=== PATIENT | female | born 1990 | race Caucasian/White ===

== ENCOUNTER 2023-03-05 18:36 | Outpatient (CLI) | payer OTHER ==
--- NOTE | 2023-03-06 08:07 | Ultrasound Report ---
PROCEDURE: OB First Trimester w/TV INDICATIONS: SUPERVISION OF OUTSIDE/PRIOR DATING DATA: 01/08/2023 IVF, 5 day old embryo. First dating scan (date and location): Today 03/05/2023. Estimated date of delivery (MARIAH) from first dating scan: 09/22/2023 TECHNIQUE: Real-time scanning was performed of the fetus and maternal pelvic organs, with image documentation. Endovaginal scanning was also performed to better visualize the fetus and maternal ovaries. COMPARISON: None FINDINGS: [place]-rump length is 4.5 cm, corresponding to an ultrasound age of 11 weeks and 2 days. He art rate is 160 bpm. Cervical length is 3.9 cm. Adnexal structures within normal limits. IMPRESSION: Single living intrauterine with positive heart tones at ultrasound age of 11 weeks an d 2 days, AMRIAH of 09/22/2023. Please note, official note/report is not available for IVF implantation dating (unconfirmed IVF MARIAH r eportedly per patient is 09/26/2023) Reviewed by: Steve Mascorro MD on 03/06/2023 8:06 AM PDT Approved by: Steve Mascorro MD on 03/06/2023 8:06 AM PDT Station ID: [id number]
== END 2023-03-05 18:37 | disposition home or self-care (01) ==
LOC: DI 18:36
PROVIDERS: ATTEND Nurse Practitioner Obstetrics & Gynecology
DX: Z34.81 Encounter for supervision of other normal pregnancy, first trimester (principal)

== ENCOUNTER 2023-06-27 12:00 | Outpatient (CLI) | payer OTHER ==
[2023-06-27 13:33] LABS: HCT - HEMATOCRIT 33.4 % (37.0-47.0); HGB - HEMOGLOBIN 10.9 g/dL (12.0-16.0); MEAN CORPUSCULAR HEMOGLOBIN 28.7 pg (27.0-31.0); MEAN CORPUSCULAR HGB CONC 32.6 g/dL (32.0-36.0); MEAN CORPUSCULAR VOLUME 87.9 fL (81.0-99.0); MEAN PLATELET VOLUME 10.6 fL (7.9-10.8); RED BLOOD COUNT 3.8 10^6/uL (4.20-5.40); RED CELL DISTRIBUTION WIDTH 13.1 % (12.0-15.0); WHITE BLOOD COUNT 10.5 x10^3/uL (4.8-10.8)
== END 2023-06-27 12:01 | disposition home or self-care (01) ==
LOC: LAB 12:00
PROVIDERS: ATTEND Nurse Practitioner Obstetrics & Gynecology
DX: Z36.9 Encounter for antenatal screening, unspecified (principal)
CPT/HCPCS: 36415; 82950; 85027

== ENCOUNTER 2023-06-29 08:19 | Outpatient (CLI) | payer OTHER ==
[2023-06-29 09:08] LABS: GTT GLUCOSE,FASTING 92 mg/dL (74-109)
== END 2023-06-29 08:20 | disposition home or self-care (01) ==
LOC: LAB 08:19
PROVIDERS: ATTEND Nurse Practitioner Obstetrics & Gynecology
DX: O99.810 Abnormal glucose complicating pregnancy (principal)
CPT/HCPCS: 36415; 82951; 82952

== ENCOUNTER 2023-09-29 10:51 | Outpatient (CLI) | payer OTHER ==
[2023-09-29 11:10] VITALS: BP 137/77
--- NOTE | 2023-09-30 20:08 | PROCEDURE REPORT ---
- HPI Diagnosis/Indication for NST: Other Current EDU 09/26/23 Gestation 40 Weeks and 3 Days 1 Para 0 Vital Signs Temperature 36.8 C 09/29/23 10:57 Heart Rate 93 09/29/23 10:57 Respiratory Rate 16 09/29/23 10:57 Blood Pressure 137/77 H 09/29/23 10:57 Temperature 36.8 C 09/29/23 10:57 Heart Rate 93 09/29/23 10:57 Respiratory Rate 16 09/29/23 10:57 Blood Pressure 137/77 H 09/29/23 10:57 O2 Saturation If not protocol: Oxygen Flow, liters/minute - NST Procedure NST Procedure Start Date 09/29/23 Start Time 11:01 Stop Time 11:30 Vibroacoustic Stimulation Used No Patient States Movement Yes - Results and Plan Plan: NST reactive. FHR baseline 140s, moderate variability, + accels, no decels Intermittent contractions appreciated via tocometry which pt does not feel. DIAGNOSIS: IVF Advanced maternal age
== END 2023-09-29 11:40 | disposition home or self-care (01) ==
LOC: WFO 10:51 → FBP 10:52 → WFO 11:40
PROVIDERS: ATTEND Nurse Practitioner Obstetrics & Gynecology
DX: O09.813 Supervision of pregnancy resulting from assisted reproductive technology, third trimester (principal); Z3A.40 40 weeks gestation of pregnancy
CPT/HCPCS: 59025

== ENCOUNTER 2023-10-02 17:26 | Inpatient (IN) | payer OTHER ==
[2023-10-02] MEDS ORDERED: OXYTOCIN/SODIUM CHLORIDE 500 ML IV PRN (18:10)
[2023-10-02] MEDS ORDERED: OXYTOCIN 10 UNIT/ML VIAL IM PRN (18:10)
[2023-10-02] MEDS ORDERED: hydrALAZINE INJ 20 MG/ML VIAL IVP PRN ×2 (18:10)
[2023-10-02] MEDS ORDERED: fentaNYL 100 MCG/2 ML VIAL IVP PRN (18:10)
[2023-10-02] MEDS ORDERED: LABETALOL 20 MG/4 ML SYRINGE IVP PRN ×3 (18:10)
[2023-10-02] MEDS ORDERED: lidocaine 1% 20 ML MDV ID PRN (18:10)
[2023-10-02] MEDS ORDERED: miSOPROStoL 200 MCG TABLET PR PRN (18:10)
[2023-10-02] MEDS ORDERED: CARBOPROST TROMETHAMINE 250 MCG/ML AMP IM PRN (18:10)
[2023-10-02] MEDS ORDERED: miSOPROStoL 200 MCG TABLET BC PRN (18:10)
[2023-10-02] MEDS ORDERED: SODIUM CHLORIDE FLUSH 0.9% 10 ML SYRINGE IVP PRN (18:10)
[2023-10-02] MEDS ORDERED: LACTATED RINGERS 1,000 ML IV PRN (18:10)
[2023-10-02] MEDS ORDERED: TRANEXAMIC ACID IN NACL 1,000 MG/100 ML BAG IV PRN (18:10)
[2023-10-02] MEDS ORDERED: TERBUTALINE 1 MG/ML VIAL SUBQ PRN (18:10)
[2023-10-02] MEDS ORDERED: METHYLERGONOVINE 0.2 MG/ML VIAL IM PRN (18:10)
[2023-10-02] MEDS ORDERED: NIFEdipine 10 MG CAPSULE PO PRN (18:10)
--- NOTE | 2023-10-02 20:20 | HISTORY & PHYSICAL EXAMINATION ---
Admit History - Visit Reason Visit Reason: Membranes rupture - : 4 Parity: 0 Premature: 0 Ectopic: 0 : 3 Care: positive: [facility] Risk/History: positive: Other Complications This : positive: Other Smoking Status: Never smoker - Mother's Labs Mother's Blood Type: positive: B Mother's RH: positive: Positive GBS: positive: Group B Step Negative Rubella Status: positive: Non-immune - HPI Current EDU 09/26/23 Gestation 40 Weeks and 6 Days 4 Vital Signs Temperature 36.8 C 10/02/23 17:39 Heart Rate 97 10/02/23 17:39 Respiratory Rate 18 10/02/23 17:39 Blood Pressure 132/78 H 10/02/23 17:39 Temperature 36.7 C 10/02/23 19:48 Heart Rate 103 H 10/02/23 19:48 Respiratory Rate 18 10/02/23 19:48 Blood Pressure 139/71 H 10/02/23 19:48 O2 Saturation If not protocol: Oxygen Flow, liters/minute - NST Procedure NST Procedure Start Time 11:01 Stop Time 11:30 - Results and Plan Findings/Impression: FHR Baseline 130s, moderate variability, + accels, no decels Contractions palpate mild intermittently with soft resting tone Review of Systems - Constitutional Constitutional: denies: Fatigue, Fever, Chills, Malaise - Eyes Eyes: denies: Blurred vision, Spots in vision, Dipolpia - Cardiovascular Cariovascular: reports: Edema. denies: Irregular heart rate, Palpitations, Chest pain - Respiratory Respiratory: denies: Cough, Wheezing, SOB at rest - Gastrointestinal Gastrointestinal: denies: Constipation, Diarrhea, Nausea, Vomiting - Genitourinary Genitourinary: denies: Dysuria - Integumentary Integumentary: denies: Rash, Pruritis - Neurological Neurological: denies: Headache Physical - Abdominal Exam Vital Signs: Temp Pulse Resp BP Pulse Ox O2 Flow Rate 36.7 C 103 H 18 139/71 H 10/02/23 19:48 10/02/23 19:48 10/02/23 19:48 10/02/23 19:48 Contraction Frequency (min/apart): intermittent Contraction Intensity: positive: Mild Uterine Resting Tone: positive: Soft - Monitoring Heart Rate Baseline: 130 Strip Review: positive: Category I - Presentation Presentation: positive: Vertex - Vaginal Exam Membranes: positive: Membranes ruptured Dilation (in cm): 2-3 Effacement (%): 80 Station: positive: -2 Cervical Position: positive: Posterior Plan for Labor - Plan For Labor I expect patient to be DC'd or transferred within 96 hours.: Yes Plan for Labor: HPI: Liliana is a 33yo @ 40.6wks gestation by IVF transfer date who presented on 10/02/2023 with c/o vaginal leakage of clear fluid that occurred as a small gush today at 1500 and was followed by a larger gush this evening at 1630. Upon arrival she was noted to have grossly ruptured membranes with continued leakage of clear vaginal fluid. She reports +FM. She denies vaginal bleeding. FHR Category I. SVE 2-3/70/-2 and vertex. She has been a patient of [facility] for the duration of her which has been complicated by her advanced maternal age and IVF . In addition she was noted to have an elevated 1 hour glucola but her 3 hour glucose was WNL. Secondary to advanced maternal age and IVF she has had twice weekly NSTs with once weekly AFIs since 36 weeks gestation for screening. She is supported by her Dean and her sister Jen. 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 TAB x 3. Last pap 11/2020. Denies history of gonorrhea, chlamydia, genital herpes, oral herpes or any other STI. Sexual partner does NOT have HSV (oral or genital). Medical Hx: Infertility Surgical Hx: D&C x 3 Social Hx: Monogamous with male partner. Stopped drinking alcohol due to . Denies current use of tobacco, marijuana or other recreational drugs. Hx of vaping. Reports that she is safe in current relationship. Family Hx: Denies family history of congenital anomalies, Cystic Fibrosis or chromosomal abnormalities; Pancreatic cancer - father; Diabetes - maternal aunt Allergies: Penicillin, grapes Medications: PNV, 50mcg levothyroxine PO once daily, ASA 81mg PO once daily course: B positive, antibody negative Rubella non-immune, varicella immune HIV non-reactive, RPR non-reactive Hep B neg; Hep C neg Initial U/S @ 8.0wks gestation consistent with IVF transfer date FAS WNL with the exception of suboptimal view of 4CH septum due to position, otherwise detailed evaluation is unremarkable. No significant structural abnormalities are appreciable at the present time. Posterior placenta without evidence of previa. 3VC. Size c/w dating. echocardiogram @ 24wks: echocardiogram entirely WNL. No follow up required during remainder of . 1 hour glucola 147 3 hr GTT: WNL (92, 164, 132, 123) Growth and GISELA @ 34wks: EFW 2954g (91%tile) Tdap: 07/2023 Vaccines: RSV -declined; influenza- declined; COVID - declined GBS negative Physical exam; Normocephalic, atraumatic Heart RRR w/o M/G/R Lungs CTAB Abdomen gravid, soft, nontender EFW 3800g FHR baseline 140s, moderate variability, + accels, no decels Contractions palpate mild intermittently with soft resting tone SVE 2-3/70/-2 and vertex Grossly ruptured membranes, clear fluid Bilateral LE's trace edema Mood is good. Assessment: 33yo @ 40.6wks gestation by IVF transfer date c/w first trimester ultrasound Advanced maternal age IVF GBS negative FHR Category I Plan: Admit to [facility] for expectant management. Intermittent heart rate auscultation. Repeat SVE in 4 hours or sooner PRN. Consider initiation of pitocin for augmentation of labor at that time if SVE unchanged. Jacuzzi PRN. Nitrous oxide PRN. Epidural per maternal request. Anticipate .
[2023-10-02] MEDS: CALCIUM CARBONATE CHEW 500 MG TABLET PO SCH (20:53)
[2023-10-03 00:36] LABS: BASOPHILS # (AUTO) 0.1 10^3/uL (0.0-0.1); BASOPHILS % (AUTO) 0.5 %; EOSINOPHILS # (AUTO) 0.2 10^3/uL (0.0-0.7); EOSINOPHILS % (AUTO) 1.6 %; HGB - HEMOGLOBIN 11.3 g/dL (12.0-16.0); LYMPHOCYTES # (AUTO) 2.1 10^3/uL (1.5-3.5); LYMPHOCYTES % (AUTO) 13.6 %; MEAN CORPUSCULAR HEMOGLOBIN 28.8 pg (27.0-31.0); MEAN CORPUSCULAR HGB CONC 33.2 g/dL (32.0-36.0); MEAN CORPUSCULAR VOLUME 86.7 fL (81.0-99.0); MEAN PLATELET VOLUME 11.1 fL (7.9-10.8); MONOCYTES # (AUTO) 1.2 10^3/uL (0.0-1.0); MONOCYTES % (AUTO) 7.7 %; NEUTROPHILS # (AUTO) 11.3 10^3/uL (1.5-6.6); NEUTROPHILS % (AUTO) 75.2 %; PLT - PLATELET COUNT 190 10^3/uL (130-450); RED BLOOD COUNT 3.92 10^6/uL (4.20-5.40); RED CELL DISTRIBUTION WIDTH 13.6 % (12.0-15.0)
--- NOTE | 2023-10-03 02:15 | PROVIDER PROGRESS NOTE ---
Labor Progress Note - Uterine Monitoring Uterine Monitoring Mode: positive: External toco Contraction Frequency (min/apart): 3-5 Contraction Intensity: positive: Moderate to strong Uterine Resting Tone: positive: Soft - Monitoring Monitor Mode: positive: External ultrasound Heart Rate Baseline: 140 Heart Rate Variability: positive: Moderate (6-25 bmp) Accelerations: positive: Present, 15x15 Decelerations: positive: None Strip Review: positive: Category I - Vaginal Exam Dilation (in cm): 5 Effacement (%): 90 Station: -2 Cervical Position: Midposition - Labor Progress Note Labor Progress Note/Additional Text: S: Breathing through contractions. Using nitrous oxide for pain management but requesting an epidural for pain management at this time. She has continued to feel increased intensity of her contractions and she feels like her ability to cope has diminished. Her Dean remains supportive at the bedside. O: FHR baseline 140s, moderate variability, + accels, no decels Contractions palpate moderate to strong every 3-6 minutes with soft resting tone SVE 5/90/-2, vertex SROM x 11 hrs A: 33yo @ 41.0wks gestation by IVF transfer date Active labor Advanced maternal age IVF FHR Category I GBS negative P: Continue expectant management. Anesthesia notified for placement of epidural for pain management. Continuous monitoring. Encouraged rotation in bed on peanut ball once comfortable with epidural. Also encouraged her to rest and get some sleep since she has not been able to sleep at al tonight. Anticipate .
[2023-10-03] MEDS ORDERED: ROPIVACAINE 0.2% 200 MG/100 ML BAG EP ONE (02:17)
[2023-10-03] MEDS ORDERED: LIDOCAINE 2%-EPI 1:100000 20 ML MDV ONE ×2 (02:21→21:09)
[2023-10-03] MEDS ORDERED: NALOXONE 0.4 MG/ML VIAL IVP PRN ×2 (02:45→22:45)
[2023-10-03] MEDS ORDERED: ONDANSETRON 4 MG/2 ML VIAL IVP PRN ×2 (02:45→07:22)
[2023-10-03] MEDS ORDERED: NALBUPHINE 10 MG/ML AMP IVP PRN (02:45)
[2023-10-03] MEDS ORDERED: diphenhydrAMINE INJ 50 MG/ML VIAL IVP PRN (02:45)
[2023-10-03] MEDS ORDERED: METOCLOPRAMIDE 10 MG/2 ML VIAL IVP PRN (02:45)
[2023-10-03] MEDS: ePHEDrine 50 MG/ML VIAL IVP PRN ×2 (03:35→03:45)
[2023-10-03] MEDS: SODIUM CHLORIDE FLUSH 0.9% 10 ML SYRINGE IVP SCH ×3 (03:36→14:09)
[2023-10-03] MEDS: CALCIUM CARBONATE CHEW 500 MG TABLET PO SCH ×3 (04:26→21:00)
--- NOTE | 2023-10-03 04:51 | PROVIDER PROGRESS NOTE ---
Labor Progress Note - Uterine Monitoring Uterine Monitoring Mode: positive: External toco Contraction Frequency (min/apart): 4-6 Contraction Intensity: positive: Moderate to strong Uterine Resting Tone: positive: Soft - Monitoring Monitor Mode: positive: External ultrasound Heart Rate Baseline: 150 Heart Rate Variability: positive: Moderate (6-25 bmp) Accelerations: positive: Present, 15x15 Decelerations: positive: Late, Intermittent (<50% x20 min) Strip Review: positive: Category II - Vaginal Exam Dilation (in cm): 6 Effacement (%): 100 Station: -1 Cervical Position: Midposition - Labor Progress Note Labor Progress Note/Additional Text: S: Patient comfortable with epidural. She is feeling ready to take a nap. Her is supportive at the bedside. O: FHR Baseline 150s, moderate variability, + accels, intermittent late decelerations following epidural placement and subsequent blood pressure drop that improved with ephedrine and position changes Contractions palpate moderate to strong every 4-6 minutes with soft resting tone SVE 6/100/-1 and vertex SROM x 14 hours A: 33yo @ 41.0wks gestation by IVF transfer date Active labor Advanced maternal age IVF GBS neg FHR Category II - overall reassuring P: Maintain epidural for pain management Continuous monitoring. Encouraged position changes in bed on peanut ball while promoting rest. Anticipate .
[2023-10-03] MEDS: LEVOTHYROXINE 25 MCG TABLET PO SCH (08:00)
[2023-10-03] MEDS: LACTATED RINGERS 1,000 ML IV SCH ×2 (08:02→16:10)
--- NOTE | 2023-10-03 09:15 | ANESTHESIA ---
Pre-Anesthesia VS, & Labs - Diagnosis term labor, IUP - Procedure epidural Vital Signs: Temp Pulse Resp BP Pulse Ox O2 Flow Rate 36.7 C 103 H 18 139/71 H 10/02/23 19:48 10/02/23 19:48 10/02/23 19:48 10/02/23 19:48 Height: 5 ft 9 in Weight (kg): 109.316 kg Body Mass Index: 35.6 BMI Classification: Obese - NPO Last Fluid Intake: t/o night Last Food Intake: dinner - Is Patient ?: Yes - Lab Results Current Lab Results: Laboratory Tests 10/03/23 03:46: Blood Type Recheck B POSITIVE 10/03/23 00:15: WBC 15.0 H, RBC 3.92 L, Hgb 11.3 L, Hct 34.0 L, MCV 86.7, MCH 28.8, MCHC 33.2, RDW 13.6, Plt Count 190, MPV 11.1 H, Neut # (Auto) 11.3 H, Lymph # (Auto) 2.1, [place] # (Auto) 1.2 H, Eos # (Auto) 0.2, Baso # (Auto) 0.1, Absolute Nucleated RBC 0.00, Nucleated RBC % 0.0 10/03/23 00:15: Blood Type B POSITIVE, Antibody Screen NEGATIVE Lab results reviewed: Yes Fish Bones: 10/03/23 00:15 Home Medications and Allergies Active Medications Calcium Carbonate/Glycine (Calcium Carbonate Chew 500 Mg Tablet) 1,000 mg PO BID ADELAIDA Last Admin: 10/03/23 04:26 Dose: 1,000 mg Carboprost Tromethamine (Carboprost Tromethamine 250 Mcg/Ml Amp) 250 mcg IM .ONCE PRN PRN Reason: Hemorrhage Diphenhydramine HCl (Diphenhydramine Inj 50 Mg/Ml Vial) 12.5 - 25 mg IVP Q6HR PRN PRN Reason: ITCHING Ephedrine Sulfate (Ephedrine 50 Mg/Ml Vial) 5 mg IVP Q5M PRN PRN Reason: For SBP<100;give until SBP>100 Last Admin: 10/03/23 03:45 Dose: 5 mg Fentanyl (Fentanyl 100 Mcg/2 Ml Vial) 50 mcg IVP Q1H PRN PRN Reason: Severe Pain (score 7-10) Hydralazine HCl (Hydralazine Inj 20 Mg/Ml Vial) 5 - 10 mg IVP Q20M PRN; Protocol PRN Reason: SBP> or= 160 OR DBP> or= 110 Hydralazine HCl (Hydralazine Inj 20 Mg/Ml Vial) 10 mg IVP .ONCE PRN; Protocol PRN Reason: SBP> or= 160 OR DBP> or= 110 Lactated Ringer's (Lr) 500 mls @ 999 mls/hr IV PRN PRN PRN Reason: NEEDED PER PROVIDER ORDERS Last Infusion: 10/03/23 08:53 Dose: Infused Oxytocin/Sodium Chloride (Pitocin/Sodium Chloride) 500 mls @ 999 mls/hr IV PRN PRN; Protocol PRN Reason: POST- HEMORR PREVENTION Tranexamic Acid (Tranexamic 1,000 Mg/100ml-Nacl) 1,000 mg in 100 mls @ 600 mls/hr IV Q30M PRN PRN Reason: EBL >1200mL and within 3hr Ropivacaine (Naropin 0.2%) 200 mg in 100 mls @ 0 mls/hr EP PRN PRN; Protocol PRN Reason: PAIN Lactated Ringer's (Lr) 1,000 mls @ 125 mls/hr IV .Q8H ADELAIDA Last Admin: 10/03/23 08:02 Dose: 125 mls/hr Labetalol HCl (Labetalol 20 Mg/4 Ml Syringe) 20 - 80 mg IVP Q10M PRN; Protocol PRN Reason: SBP> or= 160 OR DBP> or= 110 Labetalol HCl (Labetalol 20 Mg/4 Ml Syringe) 20 mg IVP .ONCE PRN; Protocol PRN Reason: SBP> or= 160 OR DBP> or= 110 Labetalol HCl (Labetalol 20 Mg/4 Ml Syringe) 20 - 40 mg IVP Q10M PRN; Protocol PRN Reason: SBP> or= 160 OR DBP> or= 110 Levothyroxine Sodium (Levothyroxine 25 Mcg Tablet) 50 mcg PO QDAC ADELAIDA Lidocaine HCl (Lidocaine 1% 20 Ml Mdv) 20 ml ID .ONCE PRN PRN Reason: PERINEAL REPAIR Stop: 10/05/23 18:11 Methylergonovine Maleate (Methylergonovine 0.2 Mg/Ml Vial) 0.2 mg IM .ONCE PRN PRN Reason: Hemorrhage Metoclopramide HCl (Metoclopramide 10 Mg/2 Ml Vial) 10 mg IVP Q6HR PRN PRN Reason: Nausea / Vomiting Last Admin: 10/03/23 07:58 Dose: 10 mg Misoprostol (Misoprostol 200 Mcg Tablet) 600 mcg BC .ONCE PRN PRN Reason: Hemorrhage Misoprostol (Misoprostol 200 Mcg Tablet) 800 mcg ID .ONCE PRN PRN Reason: Hemorrhage Nalbuphine HCl (Nalbuphine 10 Mg/Ml Amp) 2.5 - 5 mg IVP Q4H PRN PRN Reason: ITCHING Naloxone HCl (Naloxone 0.4 Mg/Ml Vial) 0.1 mg IVP Q2M PRN PRN Reason: RR<8 Nifedipine (Nifedipine 10 Mg Capsule) 10 - 20 mg PO Q20M PRN; Protocol PRN Reason: SBP> or= 160 OR DBP> or= 110 Ondansetron HCl (Ondansetron 4 Mg/2 Ml Vial) 4 mg IVP Q6HR PRN PRN Reason: Nausea / Vomiting Last Admin: 10/03/23 03:38 Dose: 4 mg Ondansetron HCl (Ondansetron 4 Mg/2 Ml Vial) 4 mg IVP Q4HR PRN PRN Reason: Nausea / Vomiting Last Admin: 10/03/23 07:31 Dose: 4 mg Oxytocin (Oxytocin 10 Unit/Ml Vial) 10 unit IM .ONCE PRN PRN Reason: Step One if no IV access. Sodium Chloride (Sodium Chloride Flush 0.9% 10 Ml Syringe) 10 ml IVP PRN PRN PRN Reason: NEEDED PER PROVIDER ORDERS Last Admin: 10/03/23 07:31 Dose: 10 ml Sodium Chloride (Sodium Chloride Flush 0.9% 10 Ml Syringe) 10 ml IVP Q8H [facility] Last Admin: 10/03/23 03:43 Dose: 10 ml Terbutaline Sulfate (Terbutaline 1 Mg/Ml Vial) 0.25 mg SUBQ .ONCE PRN PRN Reason: Tachystole Allergies/Adverse Reactions: Allergies Allergy/AdvReac Type Severity Reaction Status Date / Time grape AdvReac Anaphylaxis Verified 10/02/23 20:54 penicillin G AdvReac Hives Verified 10/02/23 20:54 Anes History & Medical History - Anesthetic History Anesthesia Complications: reports: No previous complications Family history of Anesthesia Complications: Denies Family history of Malignant Hyperthermia: Denies - Medical History Smoking Status: Never smoker - Obstetrical History : 4 Parity: 0 Events: reports: Other Complications: reports: Other Exam General: Alert, Oriented x3, Cooperative Respiratory: No respiratory distress Cardiovascular: Regular rate Neurological: Normal speech Mental/Cognitive Status: Alert/Oriented X3, Normal for patient Cognitive Status: Within normal limits Plan Anesthesia Type: Epidural Consent for Procedure(s) Verified and Reviewed: Yes Code Status: Attempt Resuscitation ASA classification: 2-Mild systemic disease Is this case an emergency?: No
[2023-10-03] MEDS: ROPIVACAINE 0.2% 200 MG/100 ML BAG EP PRN ×2 (09:26→17:43)
[2023-10-03] MEDS ORDERED: OXYTOCIN/SODIUM CHLORIDE 500 ML IV SCH ×2 (10:00→10:50)
[2023-10-03] MEDS ORDERED: CLINDAMYCIN 900 MG/50 ML 900 MG/50 ML BAG IV SCH (20:03)
[2023-10-03] MEDS ORDERED: GENTAMICIN IV ONE (20:04)
[2023-10-03] MEDS ORDERED: SODIUM CHLORIDE 0.9% IV ONE (20:04)
[2023-10-03] MEDS ORDERED: ACETAMINOPHEN 1,000 MG/100 ML 1,000 MG/100 ML BAG IV ONE (20:06)
[2023-10-03] MEDS ORDERED: GENTAMICIN 80 MG/2 ML VIAL ONE (20:39)
--- NOTE | 2023-10-03 20:43 | PROVIDER PROGRESS NOTE ---
Labor Progress Note - Uterine Monitoring Uterine Monitoring Mode: positive: External toco Contraction Frequency (min/apart): 2-4 Contraction Intensity: positive: Strong Uterine Resting Tone: positive: Soft - Monitoring Monitor Mode: positive: External ultrasound Heart Rate Baseline: 170 Heart Rate Variability: positive: Minimal (0-5 bpm) Accelerations: positive: Absent Decelerations: positive: Early, Recurrent (>50% x20 min) Strip Review: positive: Category II - Vaginal Exam Dilation (in cm): 10 Effacement (%): 100 Station: 0 - Labor Progress Note Labor Progress Note/Additional Text: S: Patient breathing through contractions with her epidural. She continues to feel intense pressure with contractions. Her and sister are supportive at the bedside. She is feeling accepting of a delivery after our discussion about failure to progress and intraamniotic infection. O: FHR baseline 170s-180s, minimal variability with intermittent periods of moderate variability Cessation of contractions Pitocin discontinued (maximum infusion rate of 12mU/mL) A: 33yo @ 41.0wks gestation by IVF transfer date Advanced maternal age IVF Intraamniotic infection GBS neg P: woolen tester physician notified and presence requested for urgent delivery secondary to arrest of decent, intolerance of labor, and intraamniotic infection. Care handed to balloon artist physician.
[2023-10-03] MEDS ORDERED: SODIUM CHLORIDE 0.9% 100ML 100 ML IV ONE (21:12)
[2023-10-03] MEDS ORDERED: LACTATED RINGERS 1,000 ML ONE (21:19)
[2023-10-03] MEDS ORDERED: LACTATED RINGERS 1,000 ML IV ONE ×2 (22:12→22:45)
[2023-10-03] MEDS ORDERED: KETOROLAC 30 MG/ML VIAL ONE (22:12)
--- NOTE | 2023-10-03 22:33 | ANESTHESIA POST OP EVALUATION ---
Anesthesia Post Eval - Post Anesthesia Eval Vitals: Last Vital Signs Temp 36.7 C 10/03/23 22:12 Pulse 101 H 10/03/23 22:22 Resp 20 10/03/23 22:22 BP 101/79 10/03/23 22:22 Pulse Ox 99 10/03/23 22:22 O2 Flow Rate CV Function Including HR & BP: Stable Pain Control: Satisfactory Nausea & Vomiting: Negative Mental Status: Baseline Respiratory Status: Airway Patent Hydration Status: Satisfactory Anesthesia Complications: None
[2023-10-03] MEDS ORDERED: oxyCODONE 5 MG TABLET PO PRN (22:45)
[2023-10-03] MEDS ORDERED: OXYTOCIN/SODIUM CHLORIDE 500 ML IV PRN (22:45)
[2023-10-03] MEDS ORDERED: NIFEdipine 10 MG CAPSULE PO PRN (22:45)
[2023-10-03] MEDS ORDERED: hydrALAZINE INJ 20 MG/ML VIAL IVP PRN ×2 (22:45)
[2023-10-03] MEDS ORDERED: LABETALOL 20 MG/4 ML SYRINGE IVP PRN ×3 (22:45)
--- NOTE | 2023-10-03 22:52 | PROVIDER PROGRESS NOTE ---
Labor Progress Note - Uterine Monitoring Uterine Monitoring Mode: positive: External toco Contraction Frequency (min/apart): 5-8 Contraction Intensity: positive: Moderate Uterine Resting Tone: positive: Soft - Monitoring Monitor Mode: positive: External ultrasound Heart Rate Baseline: 140 Heart Rate Variability: positive: Moderate (6-25 bmp) Accelerations: positive: Present, 15x15 Decelerations: positive: None Strip Review: positive: Category I - Labor Progress Note Labor Progress Note/Additional Text: S: Patient comfortable with her epidural. She is feeling very tired and really wants to work to get in a nap. Her and sister are both supportive at the bedside. O: FHR baseline 140s, moderate variability, + accels, no decels Contractions palpate moderate to strong every 5-10 minutes with soft resting tone SROM x 19 hours, continues to leak clear fluid. Afebrile SVE unchanged A: 33yo @ 41.0wks gestation by IVF transfer date Active labor with slow labor progress FHR Category I Advanced maternal age IVF GBS negative P: Initiate pitocin for augmentation of labor with titration per protocol. Continuous monitoring. Maintain epidural for pain management. Encouraged rotation in bed on peanut ball q 30 minutes while also promoting rest. Anticipate .
--- NOTE | 2023-10-03 22:52 | HISTORY & PHYSICAL EXAMINATION ---
HPI - Admitted From Admitted from: OB - History Obtained From History obtained from: Patient, Caregiver, Other Exam limitations: No limitations (patient in labor making slow progress. pushing and now with fever and tachycardia. c section recommended.) Social & Family Hx - Social History Smoking Status: Never smoker Meds/Allgy - Allergies Allergies/Adverse Reactions: Allergies Allergy/AdvReac Type Severity Reaction Status Date / Time grape AdvReac Anaphylaxis Verified 10/02/23 20:54 penicillin G AdvReac Hives Verified 10/02/23 20:54 Exam - Vital Signs Vital Signs: Vital Signs x48h Temp Pulse Resp BP Pulse Ox 10/03/23 22:27 98 20 126/76 97 10/03/23 22:22 101 H 20 101/79 99 10/03/23 22:17 101 H 21 114/81 H 98 10/03/23 22:12 98.1 F 110 H 23 130/69 98 - Physical Exam General Appearance: positive: No acute distress Abdomen: positive: Non-tender (vag exam with head not engaged. vaginal prep done. urine in catheter is bloody.) Extremities: positive: Pedal edema Neurologic/Psychiatric: positive: Oriented x3 Results - Lab Results Fish Bones: 10/03/23 00:15 Other Lab Results: Lab Results x24hrs 10/03/23 10/03/23 10/03/23 Range/Units 03:46 00:15 00:15 WBC 15.0 H (4.8-10.8) x10^3/uL RBC 3.92 L (4.20-5.40) 10^6/uL Hgb 11.3 L (12.0-16.0) g/dL Hct 34.0 L (37.0-47.0) % MCV 86.7 (81.0-99.0) fL MCH 28.8 (27.0-31.0) pg MCHC 33.2 (32.0-36.0) g/dL RDW 13.6 (12.0-15.0) % Plt Count 190 (130-450) 10^3/uL MPV 11.1 H (7.9-10.8) fL Neut # (Auto) 11.3 H (1.5-6.6) 10^3/uL Lymph # (Auto) 2.1 (1.5-3.5) 10^3/uL [place] # (Auto) 1.2 H (0.0-1.0) 10^3/uL Eos # (Auto) 0.2 (0.0-0.7) 10^3/uL Baso # (Auto) 0.1 (0.0-0.1) 10^3/uL Absolute Nucleated RBC 0.00 x10^3/uL Nucleated RBC % 0.0 /100WBC Blood Type B POSITIVE Blood Type Recheck B POSITIVE Antibody Screen NEGATIVE Crossmatch IS Only See Detail Sepsis Event Note (H) - Evaluation Possible source of Sepsis: positive: Genitourinary Impression/Plan - Problem List Problem List: Arrest of descent. large baby. plan LTCS. has working epidural. vaginal prep. risks and what to expect after discussed. consents signed. chorio - clinda infusing. will give ancef and also gent.
--- NOTE | 2023-10-03 22:59 | OPERATIVE REPORT ---
Operative Report - General Admit Date: 10/02/23 Procedure Date: 10/03/23 Planned Procedure: LTCS Pre-Op Diagnosis: failure to descend, chorio Procedure Performed: low transverse c section Post Op Diagnosis: same plus macrosomic infant. - Procedure Note Primary Surgeon: Bettie Watson MD Secondary Surgeon: Caroline Pruitt CNM Anesthesia Provider: Kaylynn Arredondo CRNA Anesthesia Technique: Epidural IV Fluids (mL): 1,000 Estimated Blood Loss (mL): 700 Urine Output (mL): 25 Indications: slow labor progress. pushing with minimal descent. large baby. maternal fever and tachycardia. Findings: large baby. Apgars are good. 8/8. weight pending. uterus, tubes and ovaries normal. Complications: none - Other Other Information/Narrative: Called by CNM as her patient was not making progress and had fever. baby had tachycardia. very slow labor progress. pushing with little success. Patient agrees to proceed with c section. procedure discussed. consents signed. epidural dosed. Brought to OR and readied for surgery. villanueva in place. vaginal prep done by me and baby's head was not engaged so no need to push it up. abdominal prep done. SCDs on and working. time out done. anesthesia tested. Pfanensteil skin incision was made with knife and carried to fascia which was transected bilaterally. rectus muscles discected off inferiorly and superiorly. muscles are split at midline. peritoneum entered digitally and stretched. Erick retractor is placed and rolled down. Low transverse uterine incision is made with the knife and stretched cephalo- caudally. Baby was OP, head in pelvis. Elevated with my hand and brought up through incision. baby was delivered. shoulders took some maneuvering to get out. Baby was very large. He was a bit pale so cord was clamped long and cut and he was handed off to coal wheeler. He was stimulated and did fine. Placenta was delivered with gentle traction. uterus was cleared of clots and debris. Closed wiht running locked 0 Monocryl suture. 2nd horizontal imbricating layer placed. Irrigation done. Erick removed. Fascia and muscles examined for bleeding and cauterized as needed. Fascia closed with running 0 Vicryl stitch. more irrigation. Sub Q closed wtih 3-0 Vicryl. Skin closed with 4-0 Monocryl with a Jadiel needle in subcuticular fashion. no complications. uterus expressed with no output. felt firm. villanueva was very bloody at start of case, clearing at end. Patient brought back to her room for recovery.
--- NOTE | 2023-10-03 23:01 | PROVIDER PROGRESS NOTE ---
Labor Progress Note - Uterine Monitoring Uterine Monitoring Mode: positive: External toco Contraction Frequency (min/apart): 4-5 Contraction Intensity: positive: Strong Uterine Resting Tone: positive: Soft - Monitoring Monitor Mode: positive: External ultrasound Heart Rate Baseline: 150 Heart Rate Variability: positive: Moderate (6-25 bmp) Accelerations: positive: Present, 15x15 Decelerations: positive: Early, Intermittent (<50% x20 min) Strip Review: positive: Category I - Vaginal Exam Dilation (in cm): 9.5 Effacement (%): 100 Station: 0 - Labor Progress Note Labor Progress Note/Additional Text: S: Patient comfortable with epidural. Anesthesia was recently present to change her epidural dosage from intermittent bolus to continuous dosage as patient is worried about her ability to push shortly after the epidural boluses and her legs become very heavy and numb. Since that change she feels like she will have more control and sensation to be able to push effectively. She is feeling more rested and she is very ready to meet her baby. Her and sister are supportive at the bedside. O: FHR baseline 150s, moderate variability, + accels, intermittent early decels Contractions palpate strong every 4-5 minutes with soft resting tone SVE anterior lip/100/0. Vertex. SROM x 25 hours - afebrile Attempted to push with anterior lip x 3 contractions with no forward progress made and lip remains, therefore pushing discontinued. Pitocin @ 11mU/mL (maximum 12 mU/mL) A: 33yo @ 41.0wks gestation by IVF transfer date Active labor FHR Category I GBS negative Advanced maternal age IVF P: Encouraged position changes to reduce pressure sensations and promote complete cervical dilation Continuous monitoring. Maintain epidural for pain management. Concern for slow labor progress despite adequate contractions and prolonged rupture of membranes.
--- NOTE | 2023-10-03 23:10 | PROVIDER PROGRESS NOTE ---
Labor Progress Note - Uterine Monitoring Uterine Monitoring Mode: positive: External toco Contraction Frequency (min/apart): 4-5 Contraction Intensity: positive: Strong Uterine Resting Tone: positive: Soft - Monitoring Monitor Mode: positive: External ultrasound Heart Rate Baseline: 170 Heart Rate Variability: positive: Minimal (0-5 bpm), Moderate (6-25 bmp) Accelerations: positive: Absent Decelerations: positive: Early, Recurrent (>50% x20 min) Strip Review: positive: Category II - Vaginal Exam Dilation (in cm): 10 Effacement (%): 100 Station: 0 - Labor Progress Note Labor Progress Note/Additional Text: S: Patient comfortable with epidural. Has pushed with tremendous effort and no descent. We reviewed my concern for failure to descend in addition to prolonged rupture of membranes and new diagnosis of intraamniotic infection diagnosed by new onset tachycardia, maternal tachycardia, and maternal temperature. She has been typed and crossmatched for 2 units secondary to her increased risk of hemorrhage. Antibiotics initiated per protocol secondary to intraamniotic infection. IV Tylenol administered due to maternal fever. physically impaired teacher physician notified of patient status and concern for potential need for delivery. physically impaired teacher physician supports delivery and will be notified PRN. Reviewed concerns with patient again and discussed delivery. She desires continued pushing effort while discussing delivery between contractions.
[2023-10-04] MEDS ORDERED: HYDROmorphone 0.5 MG/0.5 ML SYRINGE IVP PRN (00:37)
--- NOTE | 2023-10-04 00:50 | PROVIDER PROGRESS NOTE ---
Subjective - Subjective Subjective: very painful as epidural has worn off. significant buring in the incision and then uterine cramping. will have her use ice and give her some dilaudid and then oxycodone. Objective - Vital Signs/Intake & Output Vital Signs: Vital Signs x48h Temp Pulse Resp BP Pulse Ox 10/03/23 22:50 94 17 124/77 98 10/03/23 22:40 87 17 115/66 97 10/03/23 22:27 98 20 126/76 97 10/03/23 22:22 101 H 20 101/79 99 10/03/23 22:17 101 H 21 114/81 H 98 10/03/23 22:12 98.1 F 110 H 23 130/69 98 Intake & Output: Intake & Output 10/01/23 10/02/23 10/03/23 10/04/23 23:59 23:59 23:59 23:59 Intake Total 1622.700 Output Total 750 Balance 872.700 - Lab Results Fish Bones: 10/03/23 00:15 Other Labs: Lab Results x24hrs 10/03/23 10/03/23 Range/Units 03:46 00:15 Blood Type B POSITIVE Blood Type Recheck B POSITIVE Antibody Screen NEGATIVE Crossmatch IS Only See Detail Sepsis Event Note (H) - Evaluation Possible source of Sepsis: positive: Genitourinary
[2023-10-04] MEDS: oxyCODONE 5 MG TABLET PO PRN ×5 (02:50→20:30)
[2023-10-04] MEDS: SODIUM CHLORIDE FLUSH 0.9% 10 ML SYRINGE IVP SCH ×4 (03:51→19:00)
[2023-10-04] MEDS: KETOROLAC 30 MG/ML VIAL IVP SCH ×3 (03:52→16:53)
[2023-10-04] MEDS: ACETAMINOPHEN 500 MG TABLET PO SCH ×3 (03:52→19:51)
[2023-10-04] MEDS: LEVOTHYROXINE 25 MCG TABLET PO SCH (07:00)
[2023-10-04] MEDS ORDERED: ENOXAPARIN 40 MG/0.4 ML SYRINGE SUBQ SCH (09:00)
[2023-10-04 09:15] LABS: HCT - HEMATOCRIT 29.5 % (37.0-47.0); HGB - HEMOGLOBIN 9.8 g/dL (12.0-16.0); MEAN CORPUSCULAR HEMOGLOBIN 28.6 pg (27.0-31.0); MEAN CORPUSCULAR HGB CONC 33.2 g/dL (32.0-36.0); MEAN PLATELET VOLUME 10.8 fL (7.9-10.8); RED BLOOD COUNT 3.43 10^6/uL (4.20-5.40); RED CELL DISTRIBUTION WIDTH 13.9 % (12.0-15.0); WHITE BLOOD COUNT 16.1 x10^3/uL (4.8-10.8)
[2023-10-04] MEDS: DOCUSATE SODIUM 100 MG CAPSULE PO SCH ×2 (10:02→22:41)
--- NOTE | 2023-10-04 15:13 | PROVIDER PROGRESS NOTE ---
Subjective - Prog Note Date Prog Note Date: 10/04/23 Prog Note Time: 14:52 - Subjective Pt reports feeling: Improved Objective - Vital Signs/Intake & Output Reviewed Vital Signs: Yes Vital Signs: Vital Signs x48h Temp Pulse Resp BP Pulse Ox 10/04/23 08:00 97.9 F 88 16 135/63 H 97 Intake & Output: Intake & Output 10/01/23 10/02/23 10/03/23 10/04/23 23:59 23:59 23:59 23:59 Intake Total 9286.480 9346 Output Total 750 2050 Balance 872.700 -1050 - Objective General Appearance: positive: No acute distress Eyes Bilateral: positive: Normal inspection ENT: positive: ENT inspection nml Neck: positive: Nml inspection Respiratory: positive: Chest non-tender, No respiratory distress, Breath sounds nml Cardiovascular: positive: Regular rate & rhythm, No murmur, No gallop Abdomen: positive: Other (appropriately tender, lalitha 1 below u) Skin: positive: Color nml, No rash, Warm, Dry Extremities: positive: Non-tender, Full ROM, Nml appearance Neurologic/Psychiatric: positive: Oriented x3 - Lab Results Fish Bones: 10/04/23 09:07 Other Labs: Lab Results x24hrs 10/04/23 10/03/23 Range/Units 09:07 00:15 WBC 16.1 H (4.8-10.8) x10^3/uL RBC 3.43 L (4.20-5.40) 10^6/uL Hgb 9.8 L (12.0-16.0) g/dL Hct 29.5 L (37.0-47.0) % MCV 86.0 (81.0-99.0) fL MCH 28.6 (27.0-31.0) pg MCHC 33.2 (32.0-36.0) g/dL RDW 13.9 (12.0-15.0) % Plt Count 166 (130-450) 10^3/uL MPV 10.8 (7.9-10.8) fL Blood Type B POSITIVE Antibody Screen NEGATIVE Crossmatch IS Only See Detail - Other Results/Comments Other Results/Comments: doing well continue to advance D/C dressing tomorrow add lidocaine patch for pain baby is getting sugar checks due to his size continue to advance, anticipate D/C home POD#3. Sepsis Event Note (H) - Evaluation Possible source of Sepsis: positive: Genitourinary Assessment/Plan - Problem List (1) Anemia Impression: asymptomatic, add iron. Qualifiers: Anemia type: other cause Other causes of anemia: acute posthemorrhagic Qualified Code(s): D62 - Acute posthemorrhagic anemia (2) Arrest of descent, delivered, current hospitalization Impression: continue to advance, doing well. (3) Delivery by section Impression: continue to advance anticipate D/C home POD#3
[2023-10-04] MEDS: LIDOCAINE PATCH 5% TOP PRN (16:27)
[2023-10-04] MEDS: FERROUS SULFATE 325 MG TABLET PO SCH (16:27)
[2023-10-04] MEDS ORDERED: KETOROLAC 30 MG/ML VIAL IVP ONE (17:00)
[2023-10-04] MEDS ORDERED: IBUPROFEN 600 MG TABLET PO SCH (18:00)
[2023-10-04] MEDS: CALCIUM CARBONATE CHEW 500 MG TABLET PO SCH (21:00)
[2023-10-04] MEDS: IBUPROFEN 600 MG TABLET PO SCH (22:41)
[2023-10-04] MEDS: LACTATED RINGERS 1,000 ML IV SCH (23:00)
[2023-10-05] MEDS: oxyCODONE 5 MG TABLET PO PRN ×6 (00:28→23:05)
[2023-10-05] MEDS: ACETAMINOPHEN 500 MG TABLET PO SCH ×3 (04:19→21:35)
[2023-10-05] MEDS ORDERED: SIMETHICONE CHEW 80 MG TABLET PO PRN (04:39)
[2023-10-05] MEDS: IBUPROFEN 600 MG TABLET PO SCH ×3 (04:48→19:50)
[2023-10-05] MEDS: LEVOTHYROXINE 25 MCG TABLET PO SCH (06:30)
[2023-10-05] MEDS: CALCIUM CARBONATE CHEW 500 MG TABLET PO SCH ×2 (09:48→12:50)
[2023-10-05] MEDS: DOCUSATE SODIUM 100 MG CAPSULE PO SCH ×2 (09:48→21:35)
[2023-10-05] MEDS: FERROUS SULFATE 325 MG TABLET PO SCH ×2 (09:49→18:43)
--- NOTE | 2023-10-05 11:30 | PROVIDER PROGRESS NOTE ---
Subjective - Prog Note Date Prog Note Date: 10/05/23 Prog Note Time: 11:16 - Subjective Subjective: Patient is postoperative day #1 status post primary low-transverse section secondary to failure to descend, macrosomia, and intraamniotic in fection. Patient is complaining of left sided mid flank pain that is tender to touch and worse with movement. Oxygen saturation and vital signs have been within normal limits. She is also having pain at incision site which is controlled this morning on p.o. pain medication.Patient was out of bed this morning. She is spontaneously voiding. Tolerating p.o. intake. Objective - Vital Signs/Intake & Output Reviewed Vital Signs: Yes Vital Signs: Vital Signs x48h Temp Pulse Resp BP Pulse Ox 10/05/23 08:08 97.5 F L 85 20 126/72 99 10/05/23 04:00 97.7 F 85 14 98 Intake & Output: Intake & Output 10/02/23 10/03/23 10/04/23 10/05/23 23:59 23:59 23:59 23:59 Intake Total 4831.534 4802 700 Output Total 750 2675 0 Balance 990.300 -1675 700 - Objective General Appearance: positive: No acute distress Respiratory: positive: Breath sounds nml Cardiovascular: positive: Regular rate & rhythm Abdomen: positive: Non-tender (appropriately tender, dressing in place) Back: positive: Nml inspection (pain on palpation left lower flank, Musculoskeletal in nature) Extremities: positive: No pedal edema - Lab Results Fish Bones: 10/04/23 09:07 Other Labs: Lab Results x24hrs 10/03/23 Range/Units 00:15 Crossmatch IS Only See Detail Sepsis Event Note (H) - Evaluation Possible source of Sepsis: positive: Genitourinary Assessment/Plan - Problem List (1) Delivery by section Impression: Postop day 1: Patient is having difficulty with breast-feeding, support was provided. Signs and symptoms of depression discussed with patient. Encouraged resting today and ambulation. (2) Chorioamnionitis in third trimester Impression: Patient has been afebrile overnight.
--- NOTE | 2023-10-05 11:58 | Discharge Plan ---
Discharge Plan Problem Reviewed?: Yes Disposition: Home, Self Care Prescriptions: oxyCODONE [Roxicodone] 5 mg PO Q4HR PRN #21 tab PRN Reason: Moderate Pain (Level 4-6) Docusate Sodium 100Mg Capsule [Colace 100Mg Capsule] 200 mg PO BID #60 cap Ferrous Sulfate [Feosol] 325 mg PO BIDWM #60 tab Ibuprofen [Motrin] 800 mg PO Q8H PRN #30 tab PRN Reason: Pain 1-4 No Smoking: If you smoke, Please STOP! Call for help.
[2023-10-05] MEDS: LIDOCAINE PATCH 5% TOP PRN (23:07)
[2023-10-06] MEDS: oxyCODONE 5 MG TABLET PO PRN ×4 (03:04→12:37)
[2023-10-06] MEDS: IBUPROFEN 600 MG TABLET PO SCH ×2 (03:04→08:22)
[2023-10-06] MEDS: ACETAMINOPHEN 500 MG TABLET PO SCH (06:50)
[2023-10-06] MEDS: LEVOTHYROXINE 25 MCG TABLET PO SCH (07:31)
[2023-10-06] MEDS: CALCIUM CARBONATE CHEW 500 MG TABLET PO SCH (08:22)
[2023-10-06] MEDS: DOCUSATE SODIUM 100 MG CAPSULE PO SCH (08:22)
[2023-10-06] MEDS: FERROUS SULFATE 325 MG TABLET PO SCH (08:22)
--- NOTE | 2023-10-06 09:57 | DISCHARGE SUMMARY ---
Discharge Summary Discharge Date: 10/06/23 Discharging Provider: [place] Primary Care Provider: Caroline Pruitt Discharge Disposition: 01 Home, Self Care - DIAGNOSES Admission Diagnoses: 1. IVF 2. Advanced maternal Age 3. Labor - HOSPITAL COURSE Hospital Course: Patient is a G4, P0 at 40 weeks and 6 days who presented in labor. Her was IVF . Patient progressed to full cervical dilation. Physician was consulted secondary to intraamniotic infection and failure to descend, and macrosomia. A primary section was recommended at that time. Patient received antibiotics for intraamniotic infection at time of section and did not require antibiotics . Patient had an uncomplicated course. She was started on iron for acute blood loss anemia. Of note was 12 pounds. Patient was counseled on signs and symptoms of depression. Patient feels that she is doing well at this time but understand precautions. I have discussed concern for depression with patient's primary provider Caroline Bland who will have close follow-up with the patient after delivery. - ALLERGIES Allergies/Adverse Reactions: Allergies Allergy/AdvReac Type Severity Reaction Status Date / Time grape AdvReac Anaphylaxis Verified 10/02/23 20:54 penicillin G AdvReac Hives Verified 10/02/23 20:54 - MEDICATIONS Home Medications: Ambulatory Orders Medication Instructions Recorded Confirmed Docusate Sodium 100Mg Capsule 200 mg PO BID #60 cap 10/05/23 [Colace 100Mg Capsule] Ferrous Sulfate [Feosol] 325 mg PO BIDWM #60 tab 10/05/23 Ibuprofen [Motrin] 800 mg PO Q8H PRN #30 tab 10/05/23 oxyCODONE [Roxicodone] 5 mg PO Q4HR PRN #21 tab 10/05/23 - PHYSICAL EXAM AT DISCHARGE General Appearance: positive: No acute distress Respiratory: positive: No respiratory distress Abdomen: positive: Non-tender (MovedAppropriately tender. Bandage. Incision is clean, dry, intact covered with Steri-Strips.) Skin: positive: Color nml Extremities: positive: Pedal edema (1+) - LABS Result Diagrams: 10/04/23 09:07 - SEPSIS Possible source of Sepsis: Genitourinary
--- NOTE | 2023-10-06 09:59 | PROVIDER PROGRESS NOTE ---
Subjective - Prog Note Date Prog Note Date: 10/06/23 - Subjective Pt reports feeling: Improved Subjective: Patient is postop from a primary section secondary to intraamniotic infection, failure to descend, macrosomia. Patient is doing much better today compared to yesterday. She is ambulating, tolerating regular diet, spontaneously voiding, passing flatus. Pain is well controlled. Objective - Vital Signs/Intake & Output Reviewed Vital Signs: Yes Vital Signs: Vital Signs x48h Temp Pulse Resp BP Pulse Ox 10/06/23 08:00 98.1 F 72 20 126/65 98 10/06/23 06:15 208.0 F H 89 16 131/62 H 96 10/06/23 02:52 98.1 F 80 16 134/65 H 95 Intake & Output: Intake & Output 10/03/23 10/04/23 10/05/23 10/06/23 23:59 23:59 23:59 23:59 Intake Total 3169.075 7949 700 Output Total 750 2675 0 Balance 990.300 -1675 700 - Objective General Appearance: positive: No acute distress Respiratory: positive: Breath sounds nml Cardiovascular: positive: Regular rate & rhythm Abdomen: positive: Non-tender (Appropriately tender. Incision is clean dry intact covered with Steri-Strips) Skin: positive: Color nml Extremities: positive: Pedal edema (1+) - Lab Results Fish Bones: 10/04/23 09:07 Sepsis Event Note (H) - Evaluation Possible source of Sepsis: positive: Genitourinary Assessment/Plan - Problem List (1) Delivery by section Impression: Patient has not had uncomplicated course. She was counseled on signs and symptoms of Depression and has close follow-up with Caroline Bland. She was sent with a prescription for iron secondary to acute blood loss anemia. (2) Chorioamnionitis in third trimester Impression: Patient received antibiotics during section and did not require antibiotics . She has remained afebrile.
[2023-10-06] MEDS ORDERED: MEASLES,MUMPS & RUBELLA VACC 0.5 ML VIAL SUBQ ONE (11:40)
[2023-10-06 14:03] VITALS: BP 122/78; O2SAT 97
--- NOTE | 2023-10-06 14:54 | Labor Flowsheet ---
Labor Flowsheet Datetime Report Generated by CPN: 10/06/2023 14:54 Datetime: 10/03/2023 20:54 COMMUNICATION Communication: Provider at Bedside Provider Notified (Name): A. Jorge DRiley Watson Datetime: 10/03/2023 20:49 I/O Interventions: Lombardo Cath Inserted Patient Care Comments: [email or web address] Datetime: 10/03/2023 20:45 UTERINE ACTIVITY Monitor Mode: External Frequency (min): 2-3 Quality: Strong Duration (sec): 60-90 Pattern: Normal: <= 5 Contractions in 10 Minutes Resting Tone (Palpate): Relaxed Pitocin Checklist: At Least 1 Acceleration of 15 bpm x 15 Seconds in 30 Minutes or Adequate Variabi lity; No More than 1 Late Deceleration Occurred in Past 30 Minutes; No More than 2 Variable Decelerat ions > 60 Seconds in Duration and decreasing >60 bpm in 30 minutes; No More than 5 Uterine Contractio ns in 10 Minutes for any 20 Minute Interval; Uterus Palpates Soft between Contractions ASSESSMENT A Monitor Mode: Telemetry FHR Baseline Rate : 175 FHR Baseline Changes: Tachycardia Variability: Moderate 6-25 bpm Accelerations: None Decelerations: Late; Variable Actions for Decelerations: Pitocin Off Category: Category II Datetime: 10/03/2023 20:39 MEDICATIONS Pitocin (milliunits): Discontinued Communication Comments: provider notified patient the need for c/s Datetime: 10/03/2023 20:36 Antibiotics: Clindamycin IV 900 mg Datetime: 10/03/2023 20:25 Pushing Progress: Descent with Pushing Datetime: 10/03/2023 20:18 Analgesics/Sedatives: Tylenol (mg) @ 1000 Datetime: 10/03/2023 20:11 VITAL SIGNS NBP Sys/Fioan/Mean (mmHg): 130 : 66 : 83 Pulse: 122 LaborFlag: Labor Datetime: 10/03/2023 20:07 Temperature (C): 38.8 Datetime: 10/03/2023 20:01 Comments: indeterminate of FHR, occasional maternal read d/t pushing Datetime: 10/03/2023 19:40 Patient Position/Activity: Right Tilt Datetime: 10/03/2023 18:58 STAGE 2 Pushing: Coached on Pushing Pushing Position: Pushing with Contractions Datetime: 10/03/2023 18:57 VAGINAL EXAM Dilatation (cm): 10.0 Datetime: 10/03/2023 18:49 Effacement (%): 100 Station: 0 Exam by: holly jorge cnm Vaginal Bleeding: Normal Show Cervix, Consistency: Soft Cervix, Position: Anterior Datetime: 10/03/2023 18:45 Monitor Interventions for FHR: Ultrasound Adjusted Datetime: 10/03/2023 18:30 Oxygen Method: Room Air Datetime: 10/03/2023 15:59 Anesthesia Level Check: T10- Umbilicus Datetime: 10/03/2023 15:51 Respirations: 16 Datetime: 10/03/2023 15:00 Stage of : Labor Datetime: 10/03/2023 11:55 Hygiene: Underpad Changed Datetime: 10/03/2023 09:30 Comfort Measures: Hot/Cold Pack Datetime: 10/03/2023 08:00 Antiemetics/Antacids: Reglan 10 mg IV Datetime: 10/03/2023 07:22 Membranes Ruptured Date/Time: 10/02/2023 15:00 Membranes Rupture Method: Spontaneous Amniotic Fluid Color: Clear Amniotic Fluid Amount: Moderate Datetime: 10/03/2023 07:09 SpO2 (%): 98 Datetime: 10/03/2023 05:49 Vital Sign Comments: Pt warm but covered with blankets and tucked with pillows; removed some beddin g and bedside fan now on for pt comfort PAIN Pain Scale: 0 Pain Presence: None/Denies Pain Type: N/A Pain Coping: Sleeping Datetime: 10/03/2023 05:00 Pain Goal: 5 Pain Relief Measures: Epidural Given ANESTHESIA Anesthesia Plans: Epidural Datetime: 10/03/2023 04:46 Monitor Interventions for UA: [place] Adjusted Datetime: 10/03/2023 04:26 Medication Comments: calcium carbonate 1000mg PO for dyspepsia Datetime: 10/03/2023 04:20 Anesthesia Comments: Timed intermittent bolus now infusing Datetime: 10/03/2023 03:50 Temperature Route: Oral Datetime: 10/03/2023 03:45 Magnesium/Antihypertensives: Ephedrine IV (mg) @ 5 Datetime: 10/03/2023 03:30 TEACHING Instructional Method: Verbal; Patient Instructed; Verbalized Understanding Plan of Care: Plan of Care Discussed Unit Routine: Medications Datetime: 10/03/2023 03:21 PATIENT CARE IV/Blood Work: IV Bolus Given ml @ Datetime: 10/03/2023 02:44 Pain Assessment Comments: only feels cramping at the symphysis Datetime: 10/03/2023 02:33 Epidural Procedure: Loading Dose Datetime: 10/03/2023 02:23 PROCEDURE TIME OUT Procedure Type: 3 Procedure Verify: Correct Patient Identity; Correct Side and Site are Marked; Accurate Procedure Co nsent Form; Agreement on Procedure to be Done; Correct Patient Position; Safety Precautions Based on Patient History or Medication Use Epidural Positioning: Sitting Datetime: 10/03/2023 02:15 Pain Location: Abdomen; Back; Right Groin; Left Groin; Right Hip; Left Hip Datetime: 10/03/2023 02:05 Pain Management: Epidural; PRN Medications; Pain Scale/Goals; Comfort Measures Datetime: 10/03/2023 00:30 MATERNAL ASSESSMENT Level of Consciousness: Alert DTR's/Clonus: DTRs 2+; No Clonus Breath Sounds, Left: Clear and Equal Breath Sounds, Right: Clear and Equal Datetime: 10/02/2023 23:55 Labor/Induction: Activity Datetime: 10/02/2023 23:52 Contraction Comments: palpate strong Headache: Denies Nausea/Vomiting: Unsure RUQ Epigastric Pain: Denies
== END 2023-10-06 14:45 | disposition home or self-care (01) | DRG 787 ==
LOC: WFO 17:26 → FBP 17:27 → WFO 19:02 → FBP 10-03 21:49
PROVIDERS: ADMIT Nurse Practitioner Obstetrics & Gynecology; ATTEND Obstetrics & Gynecology Obstetrics
PROC: 10D00Z1 Extraction of Products of Conception, Low, Open Approach (ICD-10-PCS; principal; 2023-09-30)
DX: O41.1030 Infection of amniotic sac and membranes, unspecified, third trimester, not applicable or unspecified (principal); D62 Acute posthemorrhagic anemia; O36.63X0 Maternal care for excessive fetal growth, third trimester, not applicable or unspecified; O76 Abnormality in fetal heart rate and rhythm complicating labor and delivery; O41.1230 Chorioamnionitis, third trimester, not applicable or unspecified; Z3A.40 40 weeks gestation of pregnancy; Z37.0 Single live birth; O99.214 Obesity complicating childbirth; O32.4XX0 Maternal care for high head at term, not applicable or unspecified; Z87.891 Personal history of nicotine dependence
CPT/HCPCS: 36415; 85025; 85027; 86850; 86900; 86901; 86920; 99215; A9270; J0131; J1170; J1580; J1650; J2765; J7120; 59409; 84112

== ENCOUNTER 2025-03-18 13:05 | Inpatient (IN) ==
--- OUTSIDE RECORDS SUMMARY | 2025-03-18 13:09 | EXTERNAL MEDICAL SUMMARY RPT | Continuity of Care Document ---
Author Organization [facility] Address [address] [place] [id number] Phone Problems date description facility 2024-12-24 10:03 Supervision of elder ly multigravida, unspecified trimester [facility] 2024-12-24 10:03 Encounter for superv ision of normal , unspecified, unspecified trimester [facility] 2024-12-24 11:13 Supervision of elder ly multigravida, unspecified trimester [facility] 2024-12-24 11:13 Encounter for superv ision of normal , unspecified, unspecified trimester [facility] 2024-12-25 00:03 Supervision of elder ly multigravida, unspecified trimester [facility] 2024-12-25 00:03 Encounter for superv ision of normal , unspecified, unspecified trimester [facility] 2024-12-29 14:46 Supervision of elder ly multigravida, unspecified trimester [facility] 2024-12-29 15:38 Obesity, unspecified [facility] 2024-12-29 15:38 Supervision of elderly multigra amol, second trimester [facility] 2024-12-29 15:38 Maternal care for lo w transverse scar from previous delivery [facility] 2025-01-02 13:56 Obesity, unspecified [facility] 2025-01-02 13:56 Supervision of elderly multigra amol, second trimester [facility] 2025-01-02 13:56 Maternal care for lo w transverse scar from previous delivery [facility] 2025-01-02 14:06 Obesity, unspecified [facility] 2025-01-02 14:06 Supervision of elderly multigra amol, second trimester [facility] 2025-01-02 14:06 Maternal care for lo w transverse scar from previous delivery [facility] 2025-01-23 15:52 [facility] 2025-01-23 15:55 Obesity, unspecified [facility] 2025-01-23 15:55 Supervision of elderly multigra amol, [facility] 2025-01-23 15:55 Maternal care for lo w transverse scar from [facility] 2025-01-23 15:55 Encounter for immunization [facility] 2025-01-23 16:04 Encounter for immunization id [facility] 2025-01-27 11:59 Obesity, unspecified [facility] 2025-01-27 11:59 Supervision of elderly multigra amol, second trimester [facility] 2025-01-27 11:59 Maternal care for lo w [facility] from [facility] 2025-02-09 15:31 Obesity, unspecified [facility] 2025-02-09 15:31 Supervision of elderly multigra amol, second trimester [facility] 2025-02-09 15:31 Maternal care for lo w transverse scar from previous [facility] 2025-02-10 00:01 Obesity, unspecified [facility] 2025-02-10 00:01 Supervision of elderly multigra amol, second trimester [facility] 2025-02-10 00:01 Maternal care for lo w transverse scar from previous [facility] 2025-02-10 09:36 Obesity, unspecified [facility] 2025-02-10 09:36 Supervision of elderly multigra amol, second [facility] 2025-02-10 09:36 Maternal care for lo w transverse scar from previous [facility] 2025-02-11 09:53 Supervision of elderly multigra amol, second trimester [facility] 2025-02-11 09:53 Maternal care for lo w transverse scar from previous delivery [facility] 2025-02-11 09:53 Obesity complicating , second [facility] 2025-02-24 15:27 [facility]counter for [facility]i ng [facility]24 16:15 Encounter for screeni ng for Streptococcus B [facility] 2025-02-24 16:29 Encounter for screeni ng for Streptococcus B [facility] 2025-02-24 16:30 Encounter for screeni ng for Streptococcus B [facility] 2025-02-25 00:04 Encounter for screeni ng [facility] Streptococcus [facility]25-03-02 13:19 Encounter for screeni ng for Streptococcus B [facility] 2025-03-04 09:30 Uterine size-date discrepancy, unspecified [facility] 2025-03-04 09:33 Uterine size-date discrepancy, unspecified [facility] 2025-03-09 08:47 Uterine size-date discrepancy, unspecified [facility] 2025-03-10 17:30 Uterine size-date discrepancy, unspecified [facility] 2025-03-10 17:31 Uterine size-date discrepancy, unspecified trimester [facility] 2025-03-11 00:02 Uterine size-date discrepancy, unspecified trimester [facility] 2025-03-17 11:18 Supervision of elderly multigra amol, second trimester [facility] 2025-03-17 11:20 Supervision of elderly multigra amol, second trimester [facility] 2025-03-17 11:38 Supervision of elderly multigra amol, second trimester [facility] 2025-03-18 00:04 Supervision of elderly multigra amol, second trimester [facility] 2025-03-18 09:49 Supervision of elderly multigra amol, second trimester [facility] Results/Labs test date facility value unit notes Result panel 1 MEAN PLATELET VOLUME 2024-12-24 11:10 [facility] 10.7 fl (missing) HGB - HEMOGLOBIN 2024-12-24 11:10 [facility] 11.4 g /dl (missing) GLUCOSE,1H PP 50GM DOSE 2024-12-24 11:10 [facility] 120 mg/dl Social History date description facility
[2025-03-18] MEDS ORDERED: CITRIC ACID/SODIUM CITRATE 15 ML UDC PO ONE (13:22)
[2025-03-18] MEDS ORDERED: ceFAZolin (2G) 2 GM in SODIUM CHLORIDE 0.9% MINIBAG 100 ML IV ONE (13:24)
--- NOTE | 2025-03-18 13:25 | HISTORY & PHYSICAL EXAMINATION ---
Admit History Visit Reason Visit Reason: Contractions Smoking Status: Never smoker Other Maternal History Other Maternal History: Patient is a 34-year-old G3, P1 at 39 weeks 3 days gestation presented today for contractions. She has a previous low-transverse section and was considering TOLAC, but had a macrosomic fetus and would like to proceed with repeat section.. She has good movement. Denies loss of fluid. No CANO/BV or RUQP. No vaginal bleeding. Denies nausea and vomiting. Denies urinary urgency or dysuria. All other symptoms reviewed and were negative except per HPI. Course LMP: 06/15/2024 MARIAH by LMP: 03/22/2025 US: 08/26/2024 @ 10.2wks c/w LMP dating --> MARIAH 03/22/2025 Final MARIAH: 03/22/2025 PROBLEMS: Previous delivery: TOLAC vs RCS. Referred to [facility] at 28wks for consult. -Growth ultrasound completed @ 32wks gestation (EFW 82%tile) -Strongly desires gentle as much as possible if she ends up choosing this option. -Growth and GISELA @ 38wks >99%tile AMA: LDASA by 16wks Hypothyroidism: currently taking 50mcg levothyroxine. Repeat TSH q trimester or sooner PRN dosage adjustments. Pre- weight: 92.2kg BMI: 30.9kg Blood type: B+ Antibody Screen: Negative CBC: PLT 254 HCT 38.7 HGB 12.7 RUB: Immune VZV: Reactive HBsAg: Neg HepC: NR RPR: NR HIV: NR Flu: declines Covid: declines PAP: 03/29/2021 NILM GC/CT: neg HSV: denies in self and partner Genetic testing: NIPT neg FAS: neg Placenta: posterior Cord: 3VC GISELA: 14.4cm EFW: 28.5%tile Growth U/S @ 32wks 82%tile Growth U/S @ 38wks per Alee ALEGRE recommendation - EFW >99%tile 50gm OGCT: 120 TDAP: 01/23/2025 Breast Pump: has CBC: 11.4/34.8/195 RPR: NR GBS: 02/24/2025 negative MOD: Repeat scheduled 03/26/2025 PP BC: Meds/Allgy Home Medications Ambulatory Orders Medication Instructions Recorded Confirmed acetaminophen 325 mg tablet 325 mg PO Q6H PRN 10/17/24 03/17/25 (Tylenol) aspirin 81 mg tablet,delayed 81 mg PO QDAY #90 tabs 10/17/24 03/17/25 release (Adult Aspirin Regimen) calcium carbonate (Tums) 200 mg PO BID 10/17/24 03/17/25 vitamins no.159-iron tab PO 10/17/24 03/17/25 fumarate 28 mg-folic acid 800 mcg tablet ( Vitamin) Allergies Allergies Allergy/AdvReac Type Severity Reaction Status Date / Time grape AdvReac Anaphylaxis Verified 03/17/25 11:20 penicillin G AdvReac Hives Verified 03/17/25 11:20 PFSH Active Problems All Active Problems (Updated 03/18/25 @ 14:14 by Craig Bang MD) 39 weeks gestation of (Acute) Supervision of elderly multigravida (>=35 years old at time of delivery) (Acute) Maternal care for scar from previous delivery (Acute) Anemia (Acute) Obesity (BMI 35.0-39.9 without comorbidity) (Acute) Medical History Medical History (Updated 03/18/25 @ 14:14 by Craig Bang MD) History of hypothyroidism Hx of infertility Surgical History Surgical History (Updated 09/20/24 @ 14:17 by Caroline Pruitt CNM, [facility]) Delivery by section Social History Social History (Updated 09/16/24 @ 15:39 by Maria Del Carmen Waddell LPN) Smoking Status: Never smoker Second hand tobacco smoke exposure: No Do you dip or chew tobacco?: No Do you vape?: No ETOH Use: None Substance Use: denies use Review of Systems Status of ROS: 10 or more systems reviewed and unremarkable except as noted in history and below Physical Other Notes Labor Progress Note/Additional Text: General: Alert, oriented, no acute distress Head: Normal cephalic atraumatic Eyes: PERRLA, extraocular motions intact. Respiratory: Normal rate of respiration. No accessory muscle use, normal respiratory effort. Cardiovascular: Regular rate and rhythm Abdomen: Gravid, nontender, nondistended Extremities: Normal range of motion Neuro: Oriented x3. Normal movements Psych: Appropriate mood and affect. Normal judgment and insight FHT: reactive nst. [place]: q5 Plan for Labor Plan For Labor I expect patient to be DC'd or transferred within 96 hours.: Yes Conclusion/Plan Problem List (1) Maternal care for scar from previous delivery: Plan: section was recommended. Risks, benefits and alternatives were discussed including but not limited to infection, bleeding that may require blood products or hysterectomy for life saving measures, injury to surrounding organs including but not limited to bowel, bladder, ureters, tubes and ovaries and/or the baby. Should injury occur it could require longer/additional surgery to repair. The patient stated understanding and desired to proceed. All questions were answered posed by patient. Consent signed. 2 g cefazolin preoperatively. Qualifiers: Previous scar type: low transverse Qualified Code(s): O34.211 - Maternal care for low transverse scar from previous delivery (2) 39 weeks gestation of : Plan: NST for wellbeing. Lab Results 03/18/25 13:40
[2025-03-18 13:54] LABS: BASOPHILS % (AUTO) 0.3 %; EOSINOPHILS # (AUTO) 0.1 10^3/uL (0.0-0.7); EOSINOPHILS % (AUTO) 0.7 %; HCT - HEMATOCRIT 37.9 % (37.0-47.0); HGB - HEMOGLOBIN 12.4 g/dL (12.0-16.0); LYMPHOCYTES # (AUTO) 1.5 10^3/uL (1.5-3.5); LYMPHOCYTES % (AUTO) 12.9 %; MEAN CORPUSCULAR HEMOGLOBIN 27.9 pg (27.0-31.0); MEAN CORPUSCULAR HGB CONC 32.7 g/dL (32.0-36.0); MEAN CORPUSCULAR VOLUME 85.2 fL (81.0-99.0); MEAN PLATELET VOLUME 11.2 fL (7.9-10.8); MONOCYTES # (AUTO) 0.6 10^3/uL (0.0-1.0); MONOCYTES % (AUTO) 5.5 %; NEUTROPHILS # (AUTO) 9.4 10^3/uL (1.5-6.6); NEUTROPHILS % (AUTO) 79.8 %; PLT - PLATELET COUNT 184 10^3/uL (130-450); RED BLOOD COUNT 4.45 10^6/uL (4.20-5.40); RED CELL DISTRIBUTION WIDTH 13.2 % (12.0-15.0); WHITE BLOOD COUNT 11.7 x10^3/uL (4.8-10.8)
[2025-03-18] MEDS: LACTATED RINGERS 1,000 ML IV SCH (13:54)
[2025-03-18] MEDS ORDERED: PHENYLEPHRINE HCL 0.5 MG/5 ML AMPULE ONE (14:41)
[2025-03-18] MEDS ORDERED: OXYTOCIN 10 UNIT/ML VIAL ONE (14:41)
[2025-03-18] MEDS ORDERED: ONDANSETRON 4 MG/2 ML VIAL ONE (14:41)
[2025-03-18] MEDS ORDERED: fentaNYL 100 MCG/2 ML VIAL ONE (15:10)
[2025-03-18] MEDS ORDERED: KETOROLAC 30 MG/ML VIAL ONE (16:34)
[2025-03-18] MEDS ORDERED: BUPIVACAINE 0.25% PF 10 ML VIAL ONE (16:43)
[2025-03-18] MEDS ORDERED: ACETAMINOPHEN 1,000 MG/100 ML 1,000 MG/100 ML BAG IV ONE (17:19)
--- NOTE | 2025-03-18 17:56 | ANESTHESIA PROCEDURE NOTE ---
Pre-Anesthesia VS, & Labs Diagnosis Surgical Diagnosis:: previous C/S Procedure Procedure: repeat C/S Vitals Vital Signs: Temp Pulse Resp BP Pulse Ox 37.1 C 82 22 135/59 H 99 03/18/25 17:44 03/18/25 17:44 03/18/25 17:44 03/18/25 17:44 03/18/25 17:44 NPO NPO: >8 hours Is Patient ?: Yes Lab Results Current Lab Results: Laboratory Tests 03/18/25 13:40: WBC 11.7 H, RBC 4.45, Hgb 12.4, Hct 37.9, MCV 85.2, MCH 27.9, MCHC 32.7, RDW 13.2, Plt Count 184, MPV 11.2 H, Neut # (Auto) 9.4 H, Lymph # (Auto) 1.5, [place] # (Auto) 0.6, Eos # (Auto) 0.1, Baso # (Auto) 0.0, Absolute Nucleated RBC 0.00, Nucleated RBC % 0.0, Blood Type B POSITIVE, Antibody Screen NEGATIVE 03/18/25 13:40 Meds/Allgy Home Medications Ambulatory Orders Medication Instructions Recorded Confirmed acetaminophen 325 mg tablet 325 mg PO Q6H PRN 10/17/24 03/17/25 (Tylenol) aspirin 81 mg tablet,delayed 81 mg PO QDAY #90 tabs 10/17/24 03/17/25 release (Adult Aspirin Regimen) calcium carbonate (Tums) 200 mg PO BID 10/17/24 03/17/25 vitamins no.159-iron tab PO 10/17/24 03/17/25 fumarate 28 mg-folic acid 800 mcg tablet ( Vitamin) Allergies Allergies Allergy/AdvReac Type Severity Reaction Status Date / Time grape AdvReac Anaphylaxis Verified 03/17/25 11:20 penicillin G AdvReac Hives Verified 03/17/25 11:20 PFSH Active Problems All Active Problems (Updated 03/18/25 @ 14:14 by Craig Bang MD) 39 weeks gestation of (Acute) Supervision of elderly multigravida (>=35 years old at time of delivery) (Acute) Maternal care for scar from previous delivery (Acute) Anemia (Acute) Obesity (BMI 35.0-39.9 without comorbidity) (Acute) Medical History Medical History (Updated 03/18/25 @ 14:14 by Craig Bang MD) History of hypothyroidism Hx of infertility Surgical History Surgical History (Updated 09/20/24 @ 14:17 by Caroline Pruitt CNM, [facility]) Delivery by section Social History Social History (Updated 09/16/24 @ 15:39 by Maria Del Carmen Waddell LPN) Smoking Status: Never smoker Second hand tobacco smoke exposure: No Do you dip or chew tobacco?: No Do you vape?: No ETOH Use: None Substance Use: denies use POLST POLST Status: Full Code Anesthesia Exam (Expanded) Exam General: Alert, Oriented x3 and Cooperative Dental: WNL Mouth Openin Fingerbreadth Neck Mobility: Normal Mallampati classification: II Thyromental Distance: 4-6 cm Respiratory: Lungs clear Cardiovascular: Regular rate Exam Exam Vital Signs: Vital Signs x48h Temp Pulse Resp BP Pulse Ox 03/18/25 17:44 37.1 C 82 22 135/59 H 99 03/18/25 17:39 77 19 135/59 H 100 03/18/25 17:35 86 22 131/71 H 100 03/18/25 17:30 85 20 129/66 100 03/18/25 17:25 90 19 132/82 H 99 03/18/25 17:17 92 19 134/77 H 99 03/18/25 14:05 37.0 C 93 17 140/83 H Plan Problem List (1) Maternal care for scar from previous delivery: Plan: section was recommended. Risks, benefits and alternatives were discussed including but not limited to infection, bleeding that may require blood products or hysterectomy for life saving measures, injury to surrounding organs including but not limited to bowel, bladder, ureters, tubes and ovaries and/or the baby. Should injury occur it could require longer/additional surgery to repair. The patient stated understanding and desired to proceed. All questions were answered posed by patient. Consent signed. 2 g cefazolin preoperatively. Qualifiers: Previous scar type: low transverse Qualified Code(s): O34.211 - Maternal care for low transverse scar from previous delivery (2) 39 weeks gestation of : Plan: NST for wellbeing. Plan Anesthesia Type: Epidural and Transverse Abdominis Plane (TAP) Block Regional Block: Per Surgeon's request for Post Op pain control Consent for Procedure(s) Verified and Reviewed: Yes Code Status: Attempt Resuscitation ASA Classification ASA classification: 2-Mild systemic disease Is this case an emergency?: No
[2025-03-18] MEDS ORDERED: ePHEDrine 50 MG/ML VIAL IVP PRN (17:58)
[2025-03-18] MEDS ORDERED: NALOXONE 0.4 MG/ML VIAL IVP PRN (17:58)
[2025-03-18] MEDS ORDERED: HYDROmorphone 0.5 MG/0.5 ML SYRINGE IVP PRN (17:58)
[2025-03-18] MEDS ORDERED: fentaNYL 100 MCG/2 ML VIAL IVP PRN (17:58)
[2025-03-18] MEDS ORDERED: ATROPINE ABBOJECT 1 MG/10 ML SYRINGE IVP PRN (17:58)
[2025-03-18] MEDS ORDERED: METOCLOPRAMIDE 10 MG/2 ML VIAL IVP PRN (17:58)
[2025-03-18] MEDS ORDERED: MORPHINE 2 MG/ML CARPUJECT IVP PRN (17:58)
[2025-03-18] MEDS ORDERED: ONDANSETRON 4 MG/2 ML VIAL IVP PRN (17:58)
--- NOTE | 2025-03-18 17:59 | ANESTHESIA POST OP EVALUATION ---
Anesthesia Post Eval Post Anesthesia Eval Vitals: Last Vital Signs Temp 37.1 C 03/18/25 17:44 Pulse 82 03/18/25 17:44 Resp 22 03/18/25 17:44 BP 135/59 H 03/18/25 17:44 Pulse Ox 99 03/18/25 17:44 CV Function Including HR & BP: Stable Pain Control: Satisfactory Nausea & Vomiting: Negative Mental Status: Baseline Respiratory Status: Airway Patent Hydration Status: Satisfactory Anesthesia Complications: None
[2025-03-18] MEDS ORDERED: OXYTOCIN/SODIUM CHLORIDE 500 ML IV PRN (18:16)
[2025-03-18] MEDS ORDERED: ONDANSETRON ODT 4 MG TABLET TL PRN (18:16)
--- NOTE | 2025-03-18 18:20 | OPERATIVE REPORT ---
Operative Report General Admit Date: 03/18/25 Procedure Data: Operation Date: 03/18/25 14:30 Proposed Procedures p Section(Not Applicable) - Craig Bang MD Actual Procedures p Section(Not Applicable) - Craig Bang MD Anesthesia Type Spinal Case Staff Anesthesia Provider: Kaylynn Arredondo Anesthesia Provider: Sara Dang Assisting Provider: Caroline Pruitt Case Times Into Recovery: 03/18/25 17:17 Procedure Start: 03/18/25 15:34 Procedure End: 03/18/25 16:53 Time out: 03/18/25 15:33 Pre-op diagnosis Previous low-transverse section Term labor 39 weeks induction Suspected macrosomia Postop diagnosis Same Status post repeat low-transverse section Delivery of live vasquez Procedure Note Estimated Blood Loss (ml): 800 Pathology: None Findings: Moderately dense adhesion, bladder stuck to anterior abdominal wall. Thick scar tissue with diffuse oozing. Peritoneal adhesions to uterus. Complications: None Other Other Information/Narrative: section was recommended. Risks, benefits and alternatives were discussed including but not limited to infection, bleeding that may require blood products or hysterectomy for life saving measures, injury to surrounding organs including but not limited to bowel, bladder, ureters, tubes and ovaries and/or the baby. Should injury occur it could require longer/additional surgery to repair. The patient stated understanding and desired to proceed. All questions were answered posed by patient. Prior to being taken to the OR, 2 grams of cefazolin IV was administered. The patient was taken to the operating room where regional anesthesia was found to be adequate. She was then prepared and draped in the usual sterile fashion in the dorsal supine position with a leftward tilt displacing the uterus. Lombardo was draining to gravity. SCDs were on bilateral lower extremities. Time out was taken. A pfannenstiel skin incision was then made with the scalpel and carried through to the underlying layer of fascia. The fascia was incised in the midline and the incision extended laterally with the Ferrera scissors. The superior aspect of the facial incision was then grasped with the Scott clamps, elevated and the underlying rectus muscles dissected off sharply, carefully dissecting the fascia from the muscles, but there were moderate adhesions.. Attention was then turned to the inferior aspect of this incision which in a similar fashion was grasped, elevated with the Scott clamps and the rectus muscle dissected off sharply. The rectus muscles were in the midline, but the bladder was stacked anterior abdominal wall making the dissection difficult. Gradually layers, were able to open the peritoneum bluntly.The peritoneal incision was then extended superiorly and inferiorly with good visualization of the bladder. The bladder blade was inserted. The lower uterine segment was identified and incised in a transverse fashion with the scalpel. The uterine incision was then extended bluntly laterally. Artificial rupture of membranes demonstrated copious clear fluid. The bladder blade was removed. The fetus was in a cephalic presentation. The infants head delivered atraumatically. The anterior shoulders were delivered followed by the posterior shoulders then the remainder of the body. The infants mouth and nose were bulb suctioned. The umbilical cord was clamped times two and cut. The was handed to the pediatric team. The placenta was removed with gentle traction. Oxytocin was administered by anesthesia. The uterus was exteriorized and cleared of all clots and debris. The uterine incision was inspected and found to be without any extensions and was repaired with 0 Vicryl in a running, locked fashion. A second imbricating layer was performed. Several figure of eight stiches were performed. 1 previously cut and cauterized adhesion was still bleeding, so this was tied off with a [id number] stitch as well. Afterwards, there was no specific area of bleeding, but several oozing spots and cautery was insufficient to completely stop the bleeding and suturing caused additional bleeding, so surgicell was used and achieved hemostasis. Upon inspection, the repaired hysterotomy was found to be hemostatic. The uterus was firm and returned to the abdomen. The gutters were cleared of all clots and debris. The muscle layer was examined and found to be hemostatic. The fascia was reapproximated with 0 Vicryl in a running fashion. The subcutaneous tissue was closed with 2-0 Vicryl. The skin was closed in a subcuticular fashion with 4-0 Monocryl. The patient tolerated the procedure well. Sponge, lap and needle counts were correct times three. The patient was taken to the recovery room in stable condition. I appreciate the assistance of ZARA Mobley during this procedure, and the assistance in retraction, visualization, dissection, and overall assistance during the case were instrumental to the patient's wellbeing. Moderately difficult surgery with adhesions.
[2025-03-18] MEDS ORDERED: LACTATED RINGERS 1,000 ML IV SCH (19:00)
[2025-03-18] MEDS: ACETAMINOPHEN 500 MG TABLET PO SCH (22:42)
[2025-03-18] MEDS: oxyCODONE 5 MG TABLET PO PRN (22:42)
[2025-03-18] MEDS: KETOROLAC 30 MG/ML VIAL IVP SCH (22:43)
[2025-03-19 05:56] LABS: BASOPHILS % (AUTO) 0.2 %; HCT - HEMATOCRIT 31.7 % (37.0-47.0); HGB - HEMOGLOBIN 10.5 g/dL (12.0-16.0); LYMPHOCYTES # (AUTO) 1.1 10^3/uL (1.5-3.5); LYMPHOCYTES % (AUTO) 7.6 %; MEAN CORPUSCULAR HEMOGLOBIN 28.4 pg (27.0-31.0); MEAN CORPUSCULAR HGB CONC 33.1 g/dL (32.0-36.0); MEAN CORPUSCULAR VOLUME 85.7 fL (81.0-99.0); MEAN PLATELET VOLUME 11.4 fL (7.9-10.8); MONOCYTES # (AUTO) 0.8 10^3/uL (0.0-1.0); MONOCYTES % (AUTO) 5.3 %; NEUTROPHILS # (AUTO) 12.9 10^3/uL (1.5-6.6); PLT - PLATELET COUNT 177 10^3/uL (130-450); RED CELL DISTRIBUTION WIDTH 13.2 % (12.0-15.0)
--- NOTE | 2025-03-19 06:57 | PROVIDER PROGRESS NOTE ---
Subjective Subjective Subjective: Subjective Patient reports she is doing well. Lochia appropriate. Denies heavy bleeding. Ambulating. Pelvic and abdominal pain well-controlled. Tolerating oral intake. Diet: Regular. Voiding without difficulty. Passing flatus. Denies BM. Patient is bonding with baby in room Breast feeding going well. Bottle feeding at this time. Denies feeling lightheaded, dizzy or excessively fatigued. Objective General: Alert, oriented, no apparent distress. Cardiovascular: Regular rate. Regular rhythm. Lungs: No increased work of breathing. Abdomen: Uterus firm. Below umbilicus. No guarding or rebound. Extremities: No pain on palpation. No cords palpated. Distal pulses intact. Incision: Clean, dry, and intact. Current Medications Current Medications Current Medications: Current Medications Generic Name Dose Route Start Last Admin Trade Name Freq PRN Reason Stop Dose Admin Acetaminophen 1,000 mg 03/18/25 23:00 03/19/25 04:42 Acetaminophen 500 Mg Tablet PO 1,000 mg Q6H ADELAIDA Administration Atropine Sulfate 0.5 mg 03/18/25 17:58 Atropine Abboject 1 Mg/10 Ml Syringe IVP 03/19/25 17:58 Q5M PRN Bradycardia Docusate Sodium 100 mg 03/19/25 09:00 Docusate Sodium 100 Mg Capsule PO DAILY ADELAIDA Ephedrine Sulfate 10 mg 03/18/25 17:58 Ephedrine 50 Mg/Ml Vial IVP 03/19/25 17:58 Q5M PRN HYPOTENSION Fentanyl 25 - 50 mcg 03/18/25 17:58 Fentanyl 100 Mcg/2 Ml Vial IVP 03/19/25 17:58 Q5M PRN BREAKTHROUGH PAIN (2nd Choice) Hydromorphone HCl 0.2 - 0.6 mg 03/18/25 17:58 Hydromorphone 0.5 Mg/0.5 Ml Syringe IVP 03/19/25 17:58 Q5M PRN PAIN (First Choice) Lactated Ringer's 1,000 mls @ 125 mls/hr 03/18/25 14:00 03/18/25 13:54 Lr IV 125 mls/hr .Q8H ADELAIDA Administration Oxytocin/Sodium Chloride 500 mls @ 999 mls/hr 03/18/25 18:16 Pitocin/Sodium Chloride IV PRN PRN POST- HEMORR PREVENTION Protocol 999 MILLIUNIT/MIN Lactated Ringer's 1,000 mls @ 100 mls/hr 03/18/25 19:00 Lr IV .Q10H ADELAIDA Ibuprofen 600 mg 03/19/25 05:00 Ibuprofen 600 Mg Tablet PO Q6H ADELAIDA Ketorolac Tromethamine 30 mg 03/18/25 23:00 03/19/25 04:42 Ketorolac 30 Mg/Ml Vial IVP 03/19/25 11:01 30 mg Q6H ADELAIDA Administration Metoclopramide HCl 10 mg 03/18/25 17:58 Metoclopramide 10 Mg/2 Ml Vial IVP Q6HR PRN N/V not relieved by Zofran Morphine Sulfate 2 - 4 mg 03/18/25 17:58 Morphine 2 Mg/Ml Carpuject IVP 03/19/25 17:58 Q5M PRN PAIN (3rd Choice) Naloxone HCl 0.1 mg 03/18/25 17:58 Naloxone 0.4 Mg/Ml Vial IVP 03/19/25 17:58 Q2M PRN RESP RATE <8 Ondansetron HCl 4 mg 03/18/25 17:58 Ondansetron 4 Mg/2 Ml Vial IVP 03/19/25 17:58 ONCE PRN N/V (First Choice) Ondansetron HCl 4 mg 03/18/25 18:16 Ondansetron Odt 4 Mg Tablet TL Q4HR PRN Nausea / Vomiting Oxycodone HCl 5 mg 03/18/25 18:16 03/19/25 02:01 Oxycodone 5 Mg Tablet PO 5 mg Q4HR PRN Administration Moderate Pain (Level 4-6) Oxycodone HCl 10 mg 03/18/25 23:31 Oxycodone 5 Mg Tablet PO Q4HR PRN Moderate Pain (Level 4-6) Simethicone 80 mg 03/18/25 18:16 Simethicone Chew 80 Mg Tablet PO TID PRN Gas Objective Vital Signs/Intake & Output Vital Signs: Vital Signs x48h Temp Pulse Resp BP Pulse Ox 03/19/25 00:30 36.6 C 88 18 111/65 98 Intake & Output: Intake & Output 03/16/25 03/17/25 03/18/25 03/19/25 23:59 23:59 23:59 23:59 Intake Total 1700 / 1700 Output Total 375 / 375 Balance 1325 / 1325 Weight (kg) 247 lb Lab Results 03/19/25 05:35 Other Labs: Lab Results x24hrs 03/19/25 03/18/25 Range/Units 05:35 13:40 WBC 15.0 H 11.7 H (4.8-10.8) x10^3/uL RBC 3.70 L 4.45 (4.20-5.40) 10^6/uL Hgb 10.5 L 12.4 (12.0-16.0) g/dL Hct 31.7 L 37.9 (37.0-47.0) % MCV 85.7 85.2 (81.0-99.0) fL MCH 28.4 27.9 (27.0-31.0) pg MCHC 33.1 32.7 (32.0-36.0) g/dL RDW 13.2 13.2 (12.0-15.0) % Plt Count 177 184 (130-450) 10^3/uL MPV 11.4 H 11.2 H (7.9-10.8) fL Neut # (Auto) 12.9 H 9.4 H (1.5-6.6) 10^3/uL Lymph # (Auto) 1.1 L 1.5 (1.5-3.5) 10^3/uL [place] # (Auto) 0.8 0.6 (0.0-1.0) 10^3/uL Eos # (Auto) 0.0 0.1 (0.0-0.7) 10^3/uL Baso # (Auto) 0.0 0.0 (0.0-0.1) 10^3/uL Absolute Nucleated RBC 0.00 0.00 x10^3/uL Nucleated RBC % 0.0 0.0 /100WBC Blood Type B POSITIVE Antibody Screen NEGATIVE Assessment/Plan Problem List (1) Delivery outcome of vasquez infant: Impression: Routine postoperative care. Anticipate discharge tomorrow. Routine care Qualifiers: outcome: live Qualified Code(s): Z37.0 - Single live (2) Delivery by section: Impression: As above.
[2025-03-19] MEDS: DOCUSATE SODIUM 100 MG CAPSULE PO SCH (08:52)
[2025-03-19] MEDS: oxyCODONE 5 MG TABLET PO PRN (08:52)
--- NOTE | 2025-03-19 12:04 | PHARMACY PROGRESS NOTE ---
Best Possible Medication History Admit Date and Time: 03/18/25 [id number] Home Medications Medication Instructions Recorded Confirmed Type acetaminophen 325 mg tablet 325 mg PO Q6H PRN pain 10/17/24 03/19/25 History (Tylenol) aspirin 81 mg tablet,delayed 81 mg PO QDAY #90 tabs 10/17/24 03/19/25 Rx release (Adult Aspirin Regimen) calcium carbonate (Tums) 200 mg PO BID 10/17/24 03/19/25 History vitamins no.159-iron 1 tab PO DAILY 10/17/24 03/19/25 History fumarate 28 mg-folic acid 800 mcg tablet ( Vitamin) Processed by: Pharmacy Medications reviewed in ED?: No Medication History completed: Yes Secondary Source(s): Pharmacy records and Insurance records [facility] Statement: As the person ultimately responsible for medication therapy, providers are able to order a medication from an existing home medication list in [facility] via the "Reconcile Routine" prior to Confirmation of that medication by support representative. Such practice is discouraged except when the physician, in their clinical judgment, deems that a medical need exists for a medication without regard to previous use.
[2025-03-19] MEDS ORDERED: LEVOTHYROXINE 25 MCG TABLET PO SCH (14:00)
[2025-03-19] MEDS: SIMETHICONE CHEW 80 MG TABLET PO PRN (15:02)
[2025-03-19] MEDS: IBUPROFEN 600 MG TABLET PO SCH (18:40)
--- NOTE | 2025-03-20 07:25 | Discharge Summary ---
Discharge Summary Admit Date: 03/18/25 Discharge Date: 03/20/25 Discharging Provider: Craig Bang DIAGNOSES Admission Diagnoses: 39 weeks gestation Previous low-transverse section Suspected macrosomia Discharge Diagnoses with Status of Each Condition: Same Status post repeat low-transverse section Delivery of live vasquez HPI History of Present Illness: Subjective Patient reports she is doing well. Lochia appropriate. Denies heavy bleeding. Ambulating. Pelvic and abdominal pain well-controlled. Tolerating oral intake. Diet: Regular. Voiding without difficulty. Passing flatus. Baby was unfortunately transferred to NICU. Looking forward to being together again. Pumping going well. Denies feeling lightheaded, dizzy or excessively fatigued. Objective General: Alert, oriented, no apparent distress. Cardiovascular: Regular rate. Regular rhythm. Lungs: No increased work of breathing. Abdomen: Uterus firm. Below umbilicus. No guarding or rebound. Extremities: No pain on palpation. No cords palpated. Distal pulses intact. Incision: Clean, dry, and intact. HOSPITAL COURSE Hospital Course: Patient was admitted at 39 weeks for repeat section in the setting of suspected macrosomia and labor contractions. She underwent a repeat low- transverse section. Overall this was unremarkable although somewhat difficult with some scar tissue slowing down progress. course was complicated by having difficulties with blood sugar and oxygenation and was transferred to a NICU at a higher level facility. Yesterday, she was unsure if she could discharge, so she stayed an additional night. Today things seem better and feels comfortable going home so she can go to the outside hospital. Encouraged to call if she has any concerns. Counseled on recovery and depression. ALLERGIES Allergies Allergy/AdvReac Type Severity Reaction Status Date / Time grape AdvReac Anaphylaxis Verified 03/17/25 11:20 penicillin G AdvReac Hives Verified 03/17/25 11:20 MEDICATIONS Ambulatory Orders Medication Instructions Recorded Confirmed acetaminophen 325 mg tablet 325 mg PO Q6H PRN pain 10/17/24 03/19/25 (Tylenol) calcium carbonate (Tums) 200 mg PO BID 10/17/24 03/19/25 vitamins no.159-iron 1 tab PO DAILY 10/17/24 03/19/25 fumarate 28 mg-folic acid 800 mcg tablet ( Vitamin) ibuprofen 600 mg tablet 600 mg PO Q6H 30 days #120 tabs 03/20/25 oxycodone 5 mg tablet 5 mg PO Q4H PRN Severe Pain #20 03/20/25 tabs PHYSICAL EXAM AT DISCHARGE Vital Signs: Vital Signs x48h Temp Pulse Resp BP Pulse Ox 03/20/25 03:00 36.6 C 78 16 119/70 98 LABS 03/19/25 05:35 [facility] TIME SPENT Time Spent in Discharge (Minutes): 20 Discharge Plan Discharge Patient Disposition: Home, Self Care Medically Cleared Date:: 03/20/25 Prescriptions: New ibuprofen 600 mg Tablet 600 mg PO Q6H 30 Days Qty: 120 0RF oxycodone 5 mg tablet 5 mg PO Q4H PRN (Reason: Severe Pain) Qty: 20 0RF Continued Vitamin 28 mg iron- 800 mcg tablet 1 tab PO DAILY calcium carbonate [Tums] 200 mg calcium (500 mg) tablet,chewable 200 mg PO BID acetaminophen [Tylenol] 325 mg tablet 325 mg PO Q6H PRN (Reason: pain) Discontinued aspirin [Adult Aspirin Regimen] 81 mg tablet,delayed release (DR/EC) 81 mg PO QDAY Qty: 90 3RF Activity Restrictions: Additional Comments Diet: Regular Print Language: [place] Citizen Patient Instructions: Depression , C Section Dc Follow-up Care: Craig Bang MD [Primary Care Provider] -
[2025-03-20] MEDS: DOCUSATE SODIUM 100 MG CAPSULE PO SCH (08:38)
[2025-03-20] MEDS: LACTATED RINGERS 1,000 ML IV SCH (19:47)
--- NOTE | 2025-03-21 10:26 | Discharge Summary ---
Discharge Summary Admit Date: 03/18/25 Discharge Date: 03/21/25 Discharging Provider: Dutch REESE History of Present Illness: Admission Diagnosis: Admission Diagnoses: 39 weeks gestation Previous low-transverse section Suspected macrosomia Discharge Diagnosis: Same Status post repeat low-transverse section Delivery of live vasquez Procedures: repeat [facility] Hospital Course: Patient was admitted at 39 weeks for repeat section in the setting of suspected macrosomia and labor contractions. She underwent a repeat low-transverse section. Overall this was unremarkable although somewhat difficult with some scar tissue slowing down progress. course was complicated by having difficulties with blood sugar and oxygenation and was transferred to a NICU at a higher level facility. Discharge orders placed yesterday but Liliana decided to stay. Condition on Discharge: SUBJECTIVE: Overall feeling well this morning, has been able to get some sleep. Anxious to get baby home from this NICU. Asks if baby can come here for bili check tomorrow once discharged home from NICU, will have RN discussed with peds provider today. She is otherwise meeting all milestones and prescriptions were sent yesterday. OBJECTIVE: Vital signs reviewed GENERAL: NAD CHEST: non labored respirations ABD: soft, appropriately TTP INCISION: Incision is clear, dry, and intact with steri strips in place EXT: minimal lower extremity edema; No evidence of DVT LAB & IMAGING STUDIES: See below PLAN: Plan for discharge home with follow up in clinic at 1 week . Discussed things to look out for at home including infection, heavy bleeding, preeclampsia precautions, depression, and when to call or return to ED. Dutch Cedeno MD ALLERGIES Allergies Allergy/AdvReac Type Severity Reaction Status Date / Time grape AdvReac Anaphylaxis Verified 03/17/25 11:20 penicillin G AdvReac Hives Verified 03/17/25 11:20 MEDICATIONS Ambulatory Orders Medication Instructions Recorded Confirmed acetaminophen 325 mg tablet 325 mg PO Q6H PRN pain 10/17/24 03/19/25 (Tylenol) calcium carbonate (Tums) 200 mg PO BID 10/17/24 03/19/25 vitamins no.159-iron 1 tab PO DAILY 10/17/24 03/19/25 fumarate 28 mg-folic acid 800 mcg tablet ( Vitamin) ibuprofen 600 mg tablet 600 mg PO Q6H 30 days #120 tabs 03/20/25 oxycodone 5 mg tablet 5 mg PO Q4H PRN Severe Pain #20 03/20/25 tabs PHYSICAL EXAM AT DISCHARGE Vital Signs: Vital Signs x48h Temp Pulse Resp BP Pulse Ox 03/21/25 06:28 97.7 F 78 17 128/73 97 LABS 03/19/25 05:35 Discharge Plan Discharge Patient Disposition: 01 Home, Self Care Medically Cleared Date:: 03/20/25 Prescriptions: New ibuprofen 600 mg Tablet 600 mg PO Q6H 30 Days Qty: 120 0RF oxycodone 5 mg tablet 5 mg PO Q4H PRN (Reason: Severe Pain) Qty: 20 0RF Continued Vitamin 28 mg iron- 800 mcg tablet 1 tab PO DAILY calcium carbonate [Tums] 200 mg calcium (500 mg) tablet,chewable 200 mg PO BID acetaminophen [Tylenol] 325 mg tablet 325 mg PO Q6H PRN (Reason: pain) Discontinued aspirin [Adult Aspirin Regimen] 81 mg tablet,delayed release (DR/EC) 81 mg PO QDAY Qty: 90 3RF Activity Restrictions: Additional Comments Diet: Regular Print Language: [place] Patient Instructions: Depression , C Section Dc Follow-up Care: Craig Bang MD [Primary Care Provider] -
[2025-03-21 10:58] VITALS: TEMP 97.9
[2025-03-21 15:25] VITALS: BP 121/69; O2SAT 96
--- NOTE | 2025-03-21 16:20 | Labor Flowsheet ---
Labor Flowsheet Datetime Report Generated by CPN: 03/21/2025 16:20 Datetime: 03/18/2025 19:41 VAGINAL EXAM Membranes Ruptured Date/Time: 03/18/2025 15:52 Membranes Rupture Method: Artificial Amniotic Fluid Color: Clear
== END 2025-03-21 15:55 | disposition home or self-care (01) | DRG 788 ==
LOC: FBP 13:05
PROVIDERS: ADMIT Obstetrics & Gynecology; ATTEND Obstetrics & Gynecology